=== PATIENT | female | born 2000 | race Caucasian/White ===

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

== ENCOUNTER → 2019-06-22 09:55 | Outpatient (CLI) | payer MEDICAID, SELFPAY ==
[2019-06-22 12:40] LABS: HCG,Quantitative 2847 mIU/mL
== END ==
PROVIDERS: Visit Provider Obstetrics & Gynecology
DX: Z32.00 Encounter for pregnancy test, result unknown (principal)
CPT/HCPCS: 36415; 84702

== ENCOUNTER → 2020-04-12 09:59 | Outpatient (CLI) | payer OTHER, SELFPAY ==
--- NOTE | 2020-04-12 10:04 | US_ITS ---
PROCEDURE: US ABDOMEN LIMITED CLINICAL INDICATION: RUQ PAIN COMPARISON: No exams were available for comparison FINDINGS: The liver, pancreas, and spleen are of normal echogenicity. These organs were not measured. Gallstones present. Gallbladder wall measures 2.6 millimeters. Common bile duct measures 2.5 millimeters. The right kidney is normal size and echogenicity and measures 92 millimeters x 43 millimeters x 69 millimeters. There is normal hepatic doppler venous flow. IMPRESSION: Gallstones Dictated by: Braden Craig 04/12/2020 11:50 Electronically signed by Braden Craig in [facility] 04/12/2020 11:50
== END ==
PROVIDERS: PCP Family Medicine; Visit Provider Nurse Practitioner Family
DX: R10.11 Right upper quadrant pain (principal); R11.0 Nausea; R19.7 Diarrhea, unspecified
CPT/HCPCS: 76705

== ENCOUNTER → 2020-05-09 12:04 | Outpatient (CLI) | payer OTHER, SELFPAY ==
[2020-05-09 12:22] LABS: Basophils # 0.1 K/mm3 (0-0.2); Basophils % 1.5 % (0.1-2.0); Eosinophils # 0.3 K/mm3 (0.0-0.4); Eosinophils % 5.2 % (0.1-12.0); Hematocrit 40.9 % (37.0-47.0); Hemoglobin 13.1 g/dL (12.2-16.2); Lymphocytes # 2.1 K/mm3 (0.7-4.5); Lymphocytes % 36.4 % (10-50); Mean Corpuscular HGB Conc 31.9 g/dL (31.8-35.4); Mean Corpuscular Hemoglobin 24.4 pg (27.0-31.2); Mean Corpuscular Volume 76.2 fl (81-99); Mean Platelet Volume 7.5 fl (7.4-10.4); Monocytes # 0.2 K/mm3 (0.1-1.0); Monocytes % 4.2 % (1.7-9.3); Neutrophils # 3.1 K/mm3 (1.8-7.8); Neutrophils % 52.7 % (37.0-80.0); Platelet Count 355 K/mm3 (142-424); Red Blood Count 5.36 M/mm3 (4.20-5.40); Red Cell Distribution Width 18.8 % (11.5-17.5); White Blood Count 5.8 K/mm3 (4.5-13.0)
[2020-05-09 12:55] LABS: Chloride 103 mmol/L (98-107); Potassium 4.3 mmoL/L (3.5-5.1); Sodium 140 mmol/L (136-145)
[2020-05-09 12:57] LABS: Blood Urea Nitrogen 14 mg/dl (7-17); Estimated Glomerular Filt Rate 127 ml/min (>60); GFR (African American) 154 ML/MIN (>60)
[2020-05-09 12:58] LABS: Alanine Aminotransferase 34 U/L (12-78); Albumin Level 4.4 g/dl (3.5-5.0); Albumin/Globulin Ratio 1.7 (1.1-1.8); Alkaline Phosphatase 89 U/L (38-126); Anion Gap 13.3 mEq/L (5-15); Aspartate Amino Transferase 28 U/L (14-36); Bilirubin,Total 0.5 mg/dl (0.2-1.3); Calcium 9.7 mg/dl (8.4-10.2); Carbon Dioxide 28 mmol/L (22.0-30.0); Globulin 2.6 g/dL (1.3-3.2); Glucose 81 mg/dl (74-100)
[2020-05-09 13:07] LABS: Urine Pregnancy, HCG Qual. Negative (Negative)
[2020-05-09 17:30] LABS: Coronavirus 19 IgG Antibody Negative (Negative); Coronavirus 19 IgM Antibody Negative (Negative)
== END ==
PROVIDERS: Visit Provider Surgery
DX: K80.20 Calculus of gallbladder without cholecystitis without obstruction (principal); Z01.818 Encounter for other preprocedural examination
CPT/HCPCS: 36415; 80053; 81025; 85025; 86328

== ENCOUNTER 2020-05-10 06:39 | Day surgery (SDC) | payer OTHER, SELFPAY ==
[2020-05-08 09:38] VITALS: BMI 24.7
[2020-05-10] VITALS (11 sets, daily range): BP systolic 123–141; BP diastolic 69–87; PULSE 60–95; RESP 16–18; TEMP 36.3–43; O2SAT 94–100
--- NOTE | 2020-05-10 07:58 | HMH.ANESCL ---
[facility] Anesthesia Checklist - Patient Identification Patient Identification: Arm Band - Structural Data Admitted From: Home Planned Operative Procedure/s: laparoscopic cholecystectomy Consent for Planned Operative Procedure(s) Verified: Yes Verified Documents: Surgical Consent, History and Physical - NPO Status Verified Time NPO: 00:00 - Additional verifications Anesthesia Reactions: No Hx Blood Transfusions: No Blood Transfusion Reaction: No - Airway Assessment C-Spine Mobility Assessed: Yes (mp2) TMJ Mobility Assessed: Yes Dentition: Good Dentition - Neurological Assessment Level of Consciousness: Awake, Alert - Anesthesia Plan Anesthesia Risk discussed: Yes Anesthesia Plan: Verified ASA Class: I Anesthesia Type: General [facility] History I have reviewed the patient's past medical history: Yes Medical History: Denies:: Cancer, Diabetes Mellitus Type 1, Diabetes Mellitus Type 2, Internal Pacemaker, MRSA, Seizures *Have you ever received a pneumonia vaccine?: No *Have you received a flu vaccine this season?: No Other Medical History: Denies: Blood Transfusion Reaction Anesthesia experience/problems:: nac Other Surgeries: Yes: Other (oral sx as child). No: Pacemaker Amputation: No Fractures: No - *Social History Last grade of school completed: High school graduate Smoking Status: Never smoker Alcohol Intake: never Substance Use Type: denies use *Occupational Status:: unemployed Housing: house Household Members: family *Travel in the last 8 weeks: None Family Hx:: Non-contributory
--- NOTE | 2020-05-10 10:31 | HMH.OPNOTE ---
Date of procedure: 05/10/20 Pre-op Diagnosis:: Symptomatic gallstones Post-op Diagnosis:: Same Procedure performed:: Laparoscopic cholecystectomy Surgeon:: Lance Kovacs MD FUNDRAISING OFFICER:: Calvin Harris Anesthesia: SHARON Estimated blood loss (mL): 20 Clinical Note:: Patient is a very pleasant 19-year-old female who is approximately 10 weeks from normal vaginal delivery. During her she had developed some symptoms possibly consistent with gallbladder disease and actually seen in the emergency department last September. She has continued to have symptoms described as severe pain in the right upper quadrant with associated vomiting. She does state that she has relatively constant right upper quadrant discomfort but has had at least 3 severe attacks since her delivery on February 15. She had undergone gallbladder ultrasound which reveals gallstones with normal common bile duct and no evidence of cholecystitis. Operative findings:: She had distended gallbladder with some omental adhesions. She had redundant infundibulum of the gallbladder secondary to distention. Cystic artery was displaced somewhat to the right lateral location due to the distention and redundancy of the infundibulum and neck of the gallbladder Operative note:: Patient was taken to the operating room. She was given preoperative intravenous antibiotics. In the operating room she was placed in a supine position. General anesthesia was induced via endotracheal tube. Abdomen was prepped and draped in the standard surgical fashion. Subumbilical skin incision was made and while performing abdominal wall lift Veress needle was inserted. There was not appropriate insufflation pressures and therefore dissection was carried down to the fascia and the Veress needle was reinserted. 10 mm optical trocar was inserted at the umbilicus. She was noted to have some gas dissected into the falciform ligament. She was positioned in reverse Trendelenburg left side down. A couple 5 mm trochars were inserted in the right upper abdomen. 10 mm trocar was inserted in the epigastrium. Liver was elevated. Gallbladder was identified and grasped retracted anteriorly and superiorly over the dome of the liver. There were some adhesions of omentum to the gallbladder and these were taken down using blunt dissection. Infundibulum of the gallbladder was retracted anterior laterally. Blunt dissection was carried out the neck of the gallbladder. Infundibulum the gallbladder was redundant due to distention. She did have a prominent lymph node present. Dissection was carried out ultimately identifying the cystic duct. It was isolated. Cystic artery actually traversed somewhat to the posterior and right lateral area of the cystic duct. Cystic duct was isolated multiply clipped and then divided. The cystic artery was carefully coagulated with BRITTANIE ultrasonic robotic haley and divided. Gallbladder was dissected free from the liver in a retrograde fashion using BRITTANIE ultrasonic robotic haley. Gallbladder was placed within an Endo Catch retrieval device and removed from the peritoneal cavity via the umbilical trocar site. Gallbladder fossa was inspected for hemostasis which was assured. Trochars were removed as CO2 pneumoperitoneum was evacuated. Fascia at the umbilicus was closed with 0 Vicryl suture. Local anesthetic was infiltrated. Skin incisions were closed with 4-0 Monocryl in a subcuticular fashion. Steri-Strips were applied. Condition: stable Disposition: PACU Specimens:: Gallbladder and contents Complications:: None immediately apparent
--- NOTE | 2020-05-10 10:35 | P.PN_ITS ---
[facility] Anesthesia Record Part I Intake, IV Amount: 1,100 Estimated blood loss (mL): 10 Urine output (mL): 0 Blood Pressure: 134/69 SaO2: 94 Pulse Rate: 88 Respiratory Rate: 16 Temperature: 98.2 F Patient is:: Drowsy, Stable Stable to PACU at:: 10:30
--- NOTE | 2020-05-10 13:24 | P.PN_ITS ---
[facility] Anesthesia Record Part II Discharge Time: 10:59 Destination: Surgical Day Care (OP Surgery) PACU nurse assessment reviewed?: Yes Patient Condition:: Good Anesthesia Complications:: None Swallowing reflex intact?: Yes Cyanosis?: No Blood Pressure: 131/75 Pulse Rate: 82 Temperature: 98.4 F Mental Status: Alert & Oriented Pain level:: 0 Nausea and/or vomitting:: None Intake, IV Amount: 0
== END 2020-05-10 11:30 | disposition home or self-care (01) ==
LOC: OR 06:40
PROVIDERS: PCP Family Medicine; Visit Provider Surgery
PROC: 0FT44ZZ Resection of Gallbladder, Percutaneous Endoscopic Approach (ICD-10-PCS; CPT 47562; principal; 2020-05-10 08:45)
DX: K80.80 Other cholelithiasis without obstruction (principal); K66.0 Peritoneal adhesions (postprocedural) (postinfection)
CPT/HCPCS: 47562; 96374; J2405; J2710

== ENCOUNTER 2020-11-21 21:38 | Emergency (ER) | payer OTHER, SELFPAY ==
[2020-11-21 22:14] VITALS: BP 142/84; PULSE 88; RESP 16; TEMP 36.8; O2SAT 98; BMI 27.3
--- NOTE | 2020-11-21 22:19 | HMH.EDEYEP ---
ED Disposition Clinical Impression: Corneal abrasion Qualifiers: Encounter type: initial encounter Laterality: left Qualified Code(s): S05.02XA - Injury of conjunctiva and corneal abrasion without foreign body, left eye, initial encounter Disposition: Home, Self-Care Condition on Discharge: Good Instructions: DI for Corneal Abrasion Additional Instructions: call dr liu in am Referrals: Andi Sutton MD [Primary Care Provider] - - Critical Care Critical Care Time: No Attestation: On 11/21/20, the high probability of a clinically significant, sudden or life threatening deterioration of the following system(s) required my full and direct attention, intervention and personal management. The time I documented below is in addition to time spent performing reported procedures but includes the following listed in this critical care notation. Medical Decision Making - Medical Records Medical records reviewed: Yes: I reviewed the patient's medical records. - [place] Inquiry Pt receiving controlled substance: No Vital Signs: 11/21/20 22:14 Temperature 98.2 F Temperature Source Oral Pulse Rate [Right Brachial] 88 Respiratory Rate 16 Blood Pressure [142/84] 142/84 H Blood Pressure Mean [142/84] 103 Blood Pressure Source [142/84] Automatic Cuff Blood Pressure Position [142/84] Sitting 02 Sat by Pulse Oximetry 98 Eye Problem HPI - General Chief complaint: Eye Problems Stated complaint: AO 2/2 LEFT EYE INJURY WITH PAPER Time Seen by Provider: 11/21/20 22:19 Mode of Arrival: Family Vehicle Source of Information: Patient, Significant Other, Medical Record Limitations: No Limitations Description of Symptoms (Recalled from ER Triage Doc. by RN): papercut to left eye - History of Present Illness HPI Narrative: pt with acute lt eye injury chief complaint: eye pain Onset (ago): hour(s) Location: left eye Eye Symptoms: pain Place: home Mechanism: direct trauma Severity: moderate Associated symptoms: none Treatments Prior to Arrival: none - Related Data Patient tetanus UTD: No (declined ) Home Medications Medication Instructions Recorded Confirmed No Known Home Medications 05/08/20 05/10/20 Allergies Allergy/AdvReac Type Severity Reaction Status Date / Time No Known Allergies Allergy Verified 05/10/20 07:08 [facility] History - Hepatitis A Screen Drug use history?: No High risk sexual behaviors?: No History of sexually transmitted infection?: No Currently employed?: No Childcare worker?: No Do you have indoor plumbing?: Yes Do you have electricity?: Yes Attestation statement:: This patient has been screened for Hepatitis A risk factors. I have reviewed the patient's past medical history: Yes Medical History: Denies:: Cancer, Diabetes Mellitus Type 1, Diabetes Mellitus Type 2, Internal Pacemaker, MRSA, Seizures Other Medical History: Denies: Blood Transfusion Reaction Other Surgeries: Yes: No Previous Surgery, Other (oral sx as child). No: Pacemaker Amputation: No Fractures: No - Social History Smoking Status: Never smoker Alcohol Intake: never Substance Use Type: denies use Occupational Status: unemployed Housing: house Household Members: family Family Hx:: Non-contributory ROS Obtained: Yes All systems reviewed & no additional complaints - Constitutional Constitutional: Denies fever(s) - Eyes Eyes: Reports as per HPI, Reports sensitivity to light, Reports eye pain - ENT Ears, Nose, Mouth, and Throat: Denies sore throat - Cardiovascular Cardiovascular: Denies chest pain - Respiratory Respiratory: Denies shortness of breath - Genitourinary Female Genitourinary: Denies hematuria - Musculoskeletal Musculoskeletal: Denies joint pain - Integumentary/Breasts Skin/Breast: Denies rash - Neurologic Neurologic: Denies loss of vision, Denies seizure-like activity Physical Exam - General General appearance: alert - Head Head exam: normocephalic -
[2020-11-21 22:48] VITALS: BP 142/78; PULSE 81; RESP 19; TEMP 37.6; O2SAT 98
== END 2020-11-21 22:51 | disposition home or self-care (01) ==
PROVIDERS: Emergency Provider Emergency Medicine; PCP Family Medicine
DX: S05.02XA Injury of conjunctiva and corneal abrasion without foreign body, left eye, initial encounter (principal)
CPT/HCPCS: 99281

== ENCOUNTER → 2021-08-08 11:19 | Outpatient (CLI) | payer OTHER, SELFPAY ==
[2021-08-08 13:06] LABS: HCG,Quantitative 992 mIU/ml (0-5.42)
== END ==
PROVIDERS: Visit Provider Obstetrics & Gynecology
DX: Z34.90 Encounter for supervision of normal pregnancy, unspecified, unspecified trimester (principal)
CPT/HCPCS: 36415; 84702

== ENCOUNTER → 2021-08-10 11:21 | Outpatient (CLI) | payer OTHER, SELFPAY ==
[2021-08-10 12:41] LABS: HCG,Quantitative 2529 mIU/ml (0-5.42)
== END ==
PROVIDERS: Visit Provider Obstetrics & Gynecology
DX: Z34.90 Encounter for supervision of normal pregnancy, unspecified, unspecified trimester (principal)
CPT/HCPCS: 36415; 84702

== ENCOUNTER → 2021-09-03 14:49 | Outpatient (CLI) | payer OTHER, SELFPAY ==
--- NOTE | 2021-09-03 14:49 | US_ITS ---
PROCEDURE: US OB <= 14 WEEKS FETUS CLINICAL INDICATION: dates COMPARISON: No exams were available for comparison FINDINGS: An intrauterine gestational sac is present with a pole with a crown-rump length of 1.68cm correlating to gestational age of 8weeks 1day. heart tones are present with an FHR of 161bpm. Yolk sac is noted. Unremarkable adnexa IMPRESSION: Live IUP at 8 weeks 1 day Estimated due date by Ultrasound is 04/14/2022 Dictated by: Bacilio Barrera MD 09/03/2021 16:28 Bacilio Barrera MD in [facility] 09/03/2021 16:28
== END ==
PROVIDERS: PCP Family Medicine; Visit Provider Obstetrics & Gynecology
DX: Z34.90 Encounter for supervision of normal pregnancy, unspecified, unspecified trimester (principal)
CPT/HCPCS: 76801

== ENCOUNTER → 2022-06-11 14:31 | Outpatient (CLI) | payer OTHER, SELFPAY | PROVIDERS: PCP Family Medicine; Visit Provider Family Medicine | DX: Z20.822 Contact with and (suspected) exposure to COVID-19 (principal); R19.7 Diarrhea, unspecified; R51.9 Headache, unspecified; R11.0 Nausea | CPT/HCPCS: 87177; C9803; U0003; U0005 ==

== ENCOUNTER 2022-11-16 13:21 | Emergency (ER) | payer OTHER, SELFPAY ==
--- NOTE | 2022-11-16 14:12 | EXP.UTC ---
Discharge Plan Disposition Patient Disposition: Home, Self-Care Condition: Good Prescriptions Prescriptions: New amoxicillin [amoxicillin] 500 mg tablet 500 mg PO TID 10 Days Qty: 30 0RF gumtiloducaippf-eiylddriy-IX [Bromfed DM] 2-30-10 mg/5 mL Syrup 5 ml PO Q6H PRN (Reason: Cough) Qty: 240 0RF Referrals Follow up/Referrals: Avis Flores PA [Primary Care Provider] - See instructions Activity Restrictions/Add. Instructions Additional Instructions/Restrictions: Drink plenty of fluids. Take tylenol or ibuprofen for pain or fever. Take the medications as directed. Follow up with your regular doctor. GO TO THE ER FOR ANY WORSENING SYMPTOMS Clinical Impressions Clinical Impression: Pharyngitis Instructions Patient Instructions: DI for Pharyngitis/Tonsillopharyngitis -- Adult Discharge ED Provider: Yaw Braxton [facility] [place] HPI General Stated complaint: sore throat,congested Time Seen by Provider: 11/16/22 14:11 History of Present Illness Provider Complaint: She c/o sore throat for the past 2 days. She has had chills, but no documented fever. He states that she feels like she has strep throat. Related Data Previous Rx's Medication Instructions Recorded amoxicillin 500 mg tablet 500 mg PO TID 10 days #30 tabs 11/16/22 uueygttfqbnbeut-mvnemeygtppgovx-AJ 5 ml PO Q6H PRN Cough #240 mL 11/16/22 2 mg-30 mg-10 mg/5 mL oral syrup (Bromfed DM) Allergies Allergy/AdvReac Type Severity Reaction Status Date / Time No Known Allergies Allergy Verified 11/16/22 14:38 [facility] Disclaimer: The information contained in this section may have been updated after the patient was seen, as this information can be updated by other users. Social History Smoking Status: Never smoker alcohol intake: never substance use type: denies use current occupational status: unemployed Travel in the last 8 weeks: None household members: family housing: house caffeine: Yes ROS Obtained: Yes All systems reviewed & no additional complaints except as documented Constitutional Constitutional: Reports chills and Reports fever(s) Eyes Eyes: Denies eye discharge ENT Ears, Nose, Mouth, and Throat: Reports as per HPI Cardiovascular Cardiovascular: Denies chest pain Respiratory Respiratory: Denies chest congestion and Reports cough Gastrointestinal Gastrointestingal: Reports nausea; Denies abdominal pain, constipation, cramping, diarrhea or vomiting Musculoskeletal Musculoskeletal: Denies arthralgias Integumentary/Breasts Skin/Breast: Denies rash Neurologic Neurologic: Denies paresthesias Physical Exam General General appearance: alert and in no apparent distress Head Head exam: atraumatic, normocephalic and normal inspection Eye Eye exam: Present normal appearance, PERRL and EOMI ENT ENT exam: Present mucous membranes moist and normal external ear exam Expanded ENT Exam TM/Canal exam: Bilateral TM: erythema and bulging Nose exam: Absent sinus tenderness Mouth exam: Present normal external inspection; Absent drooling Teeth exam: Present normal inspection Throat exam: Present tonsillar erythema, tonsillomegaly and tonsillar exudate Neck Neck exam: Present normal inspection, full ROM and trachea midline; Absent tenderness, meningismus or lymphadenopathy Chest Chest inspection: Present normal inspection and symmetric chest wall rise; Absent tenderness Respiratory Respiratory exam: Present normal lung sounds bilaterally; Absent respiratory distress, wheezes or stridor Cardiovascular Cardiovascular exam: Present regular rate and normal rhythm; Absent systolic murmur or diastolic murmur Abdominal Exam Abdominal exam: Present soft and normal bowel sounds; Absent distention, tenderness, guarding, rebound or rigidity Extremities Exam Extremities exam: Present normal inspection and normal capillary refill; Absent calf tenderness Back Exam Back e
[2022-11-16 14:30] VITALS: BP 122/86; PULSE 134; RESP 20; TEMP 36.9; O2SAT 96; BMI 25.8
[2022-11-16 14:36] LABS: UTC Strep Screen (Rapid) Negative (Negative)
[2022-11-16 15:01] VITALS: BP 122/86; PULSE 134; RESP 20; TEMP 36.9; O2SAT 96
== END 2022-11-16 15:00 | disposition home or self-care (01) ==
PROVIDERS: Emergency Provider Nurse Practitioner Family; PCP Physician Assistant
DX: J02.9 Acute pharyngitis, unspecified (principal)
CPT/HCPCS: 87880; 99212; G0463

== ENCOUNTER 2023-03-26 21:22 | Emergency (ER) | payer OTHER, SELFPAY ==
[2023-03-26 21:23] VITALS: BP 136/78; PULSE 112; RESP 20; TEMP 37.7; O2SAT 99; BMI 24.3
[2023-03-26 21:30] VITALS: BP 133/82; PULSE 122; O2SAT 99
[2023-03-26 21:39] LABS: Microscopic, Urine URINE MICROSCOPIC (MICROSCOPIC)
--- NOTE | 2023-03-26 21:46 | ECG_ITS ---
APPROVED REPORT Exam: Resting ECG HR:102 bpm ECG Measurements Heart Rate 102 AXES GA 126 P 55 QRSd 85 QRS 76 QT 308 T 42 QTc 367 Conclusion SINUS TACHYCARDIA NONSPECIFIC T-WAVE ABNORMALITY ABNORMAL RHYTHM ECG UNCONFIRMED REPORT Electronically signed by : Andi Castro MD 03/27/2023 09:26:12
[2023-03-26 21:47] LABS: Urine Pregnancy, HCG Qual. Negative (Negative)
[2023-03-26 21:48] LABS: Appearance,Urine SL CLOUDY (Clear); Bilirubin,Urine Negative (Negative); Blood, Urine Negative (Negative); Color,Urine YELLOW (Yellow); Glucose,Urine (UA) Negative (Negative); Ketones,Urine Negative (Negative); Leukocyte Esterase,Urine Negative (Negative); Nitrate,Urine Negative (Negative); Protein,Urine Negative (Negative)
[2023-03-26 21:53] LABS: Coronavirus 19, PCR Not Detected (NotDetected); Influenza A, PCR Not Detected (NotDetected); Influenza B, PCR Not Detected (NotDetected)
[2023-03-26 21:59] LABS: Amorphous Sediment,Urine 1+ /lpf; Bacteria,Urine 1+ /lpf; WBC,Urine Occasional #/hpf (0-3)
[2023-03-26 22:00] VITALS: BP 117/76; PULSE 103; O2SAT 97
[2023-03-26 22:02] LABS: Lactic Acid 1.2 mmol/L (0.7-2.1)
[2023-03-26 22:17] LABS: Basophils % 0.3 % (0.1-2.0); Eosinophils # 0.1 K/mm3 (0.0-0.4); Eosinophils % 1.6 % (0.1-12.0); Hematocrit 38.9 % (37.0-47.0); Hemoglobin 12.7 g/dL (12.2-16.2); Lymphocytes # 0.7 K/mm3 (0.7-4.5); Lymphocytes % 11.4 % (10-50); Mean Corpuscular HGB Conc 32.7 g/dL (31.8-35.4); Mean Corpuscular Hemoglobin 26.6 pg (27.0-31.2); Mean Corpuscular Volume 81.5 fl (81-99); Mean Platelet Volume 8.2 fl (7.4-10.4); Monocytes # 0.2 K/mm3 (0.1-1.0); Monocytes % 3.7 % (1.7-9.3); Neutrophils # 5.1 K/mm3 (1.8-7.8); Neutrophils % 82.9 % (37.0-80.0); Platelet Count 237 K/mm3 (142-424); Red Blood Count 4.78 M/mm3 (4.20-5.40); Red Cell Distribution Width 13.9 % (11.5-17.5); White Blood Count 6.2 K/mm3 (4.8-10.8)
[2023-03-26 22:22] LABS: Chloride 101 mmol/L (98-107); Sodium 136 mmol/L (136-145)
[2023-03-26 22:25] LABS: Alanine Aminotransferase 20 U/L (12-78); Albumin Level 3.9 g/dl (3.5-5.0); Albumin/Globulin Ratio 1.5 (1.1-1.8); Alkaline Phosphatase 77 U/L (38-126); Aspartate Amino Transferase 24 U/L (14-36); Bilirubin,Total 0.2 mg/dl (0.2-1.3); Blood Urea Nitrogen 13 mg/dl (7-17); Carbon Dioxide 27 mmol/L (22.0-30.0); Creatinine Clearance Estimated 172 mL/min (50-200); Estimated Glomerular Filt Rate 124 ml/min (>60); GFR (African American) 150 ML/MIN (>60); Globulin 2.6 g/dL (1.3-3.2); Total Protein,Serum 6.5 g/dl (6.3-8.2)
[2023-03-26 22:26] LABS: Calcium 8.6 mg/dl (8.4-10.2); Glucose 92 mg/dl (74-100)
--- NOTE | 2023-03-26 22:32 | HMH.EDGENADL ---
Discharge Plan Disposition Patient Disposition: Home, Self-Care Condition: Good Chief Complaint: Fever Prescriptions Prescriptions: No Action amoxicillin [amoxicillin] 500 mg tablet 500 mg PO TID 10 Days Qty: 30 0RF xsbywxaogwuveso-coptcazao-VE [Bromfed DM] 2-30-10 mg/5 mL Syrup 5 ml PO Q6H PRN (Reason: Cough) Qty: 240 0RF Referrals Follow up/Referrals: Avis Flores PA [Primary Care Provider] - See instructions Activity Restrictions/Add. Instructions Additional Instructions/Restrictions: Motrin/Tylenol for aches, pains, fever. Stay well-hydrated. Follow-up PCP in 1 to 2 days Clinical Impressions Clinical Impression: Acute viral syndrome Discharge ED Provider: Fox Hightower General Adult HPI General Chief complaint: Fever Stated complaint: weak, 102.6 fever,dizzy,headahce Time Seen by Provider: 03/26/23 21:28 Mode of Arrival: Ambulatory Source of Information: Patient Limitations: No Limitations Description of Symptoms (Recalled from ER Triage Doc. by RN): Pt states she has had increased weakness, headache, fever which started today. History of Present Illness HPI narrative: 22yo F presents to the ER secondary to fever, weakness, headache. Symptoms began today. Reports a temperature of 102.6 and took Tylenol prior to arrival. No known sick contact. Mild nausea without vomiting. Normal bowel habits. Related Data Previous Rx's Medication Instructions Recorded amoxicillin 500 mg tablet 500 mg PO TID 10 days #30 tabs 11/16/22 tbqsrggrlcqglsh-kyouhqelkjanbjm-RP 5 ml PO Q6H PRN Cough #240 mL 11/16/22 2 mg-30 mg-10 mg/5 mL oral syrup (Bromfed DM) Allergies Allergy/AdvReac Type Severity Reaction Status Date / Time No Known Allergies Allergy Verified 11/16/22 14:38 [facility] Disclaimer: The information contained in this section may have been updated after the patient was seen, as this information can be updated by other users. Social History Smoking Status: Never smoker alcohol intake: never substance use type: denies use current occupational status: unemployed Travel in the last 8 weeks: None household members: family housing: house caffeine: Yes ROS Obtained: Yes Systems reviewed as appropriate & no additional complaints except as documented Physical Exam General General appearance: alert and in no apparent distress Head Head exam: atraumatic Eye Eye exam: Present PERRL ENT ENT exam: Present mucous membranes moist Neck Neck exam: Present trachea midline Respiratory Respiratory exam: Present normal lung sounds bilaterally; Absent respiratory distress Cardiovascular Cardiovascular exam: Present regular rate, normal rhythm and normal heart sounds Abdominal Exam Abdominal exam: Present soft and normal bowel sounds; Absent distention or tenderness Extremities Exam Extremities exam: Present normal inspection and normal capillary refill; Absent tenderness or edema Neurological Exam Neurological exam: Present alert, oriented X3 and CN II-XII intact Psychiatric Psychiatric exam: Present normal affect Skin Skin exam: Present warm and dry Medical Decision Making Medical Records Medical records reviewed: Yes I reviewed the patient's medical records. [place] Inquiry Pt receiving controlled substance: No Vital Signs: 03/26/23 21:23 03/26/23 21:30 03/26/23 21:50 Temperature 100 F H Temperature Source Oral Oral Pulse Rate 122 H Pulse Rate [Right] 112 H Respiratory Rate 20 Blood Pressure 133/82 Blood Pressure [Right Arm] 136/78 Blood Pressure Mean [Right Arm] 97 Blood Pressure Source [Right Arm] Automatic Cuff Blood Pressure Position [Right Arm] Sitting 02 Sat by Pulse Oximetry 99 99 Oxygen Delivery Method Room Air Room Air Lab Data Lab results reviewed: Yes I reviewed the patient's lab results. Lab Results 03/26/23 21:30: Urine Color Yellow, Urine Appearance Sl cloud
[2023-03-26 22:35] VITALS: BP 118/76; PULSE 112; O2SAT 97
[2023-03-26 23:13] LABS: Strep Scrn Group A (Rapid) Negative (Negative)
--- NOTE | 2023-03-26 23:23 | PC.NURSE ---
rounded on pt and updating she would be discharged once IV fluids are done infusing
[2023-03-27 00:16] VITALS: BP 116/87; PULSE 91; RESP 16; TEMP 37.1; O2SAT 97
== END 2023-03-27 00:21 | disposition home or self-care (01) ==
PROVIDERS: Emergency Provider Family Medicine; PCP Physician Assistant
DX: R51.9 Headache, unspecified (principal); R53.1 Weakness; R50.9 Fever, unspecified; R00.0 Tachycardia, unspecified; B34.9 Viral infection, unspecified
CPT/HCPCS: 80053; 81001; 81025; 83605; 85025; 87040; 87430; 87635; 87636; 93005; 96361; 96365; 99285; C9803; J0696; U0003; U0005

== ENCOUNTER 2023-06-16 09:13 | Emergency (ER) | payer OTHER, SELFPAY ==
[2023-06-16 09:50] VITALS: BP 140/92; PULSE 91; RESP 18; TEMP 37; O2SAT 100; BMI 28.0
--- NOTE | 2023-06-16 10:03 | EXP.UTC ---
Discharge Plan Disposition Patient Disposition: Home, Self-Care Condition: Good Prescriptions Prescriptions: New triamcinolone acetonide 0.1 % cream 1 applic topical BID PRN (Reason: itching) Qty: 30 0RF diphenhydramine HCl [Diphenhydramine HCl] 25 mg capsule 25 mg PO Q6HP PRN (Reason: Itching) Qty: 30 0RF methylprednisolone 4 mg Tablets,Dose Pack 4 mg PO DIRECTED Qty: 21 0RF No Action zptyzihzszijxkg-sjirxycov-WJ [Bromfed DM] 2-30-10 mg/5 mL Syrup 5 ml PO Q6H PRN (Reason: Cough) Qty: 240 0RF Referrals Follow up/Referrals: Avis Flores PA [Primary Care Provider] - See instructions Activity Restrictions/Add. Instructions Additional Instructions/Restrictions: Try to identify and avoid contact with the offending substance. Don't start the oral steroids until tomorrow. The diphenhydramine (benedryl) will make you drowsy, so don't drive or operate heavy machinery after taking it. Don't put the topical steroids (triamcinolone) on your face or your groin. Follow up with your regular doctor. GO TO THE ER FOR ANY WORSENING SYMPTOMS OR CONCERNS Clinical Impressions Clinical Impression: Contact dermatitis Instructions Patient Instructions: Contact Dermatitis, DI for Contact Dermatitis Discharge ED Provider: Yaw Braxton [facility] [place] General Stated complaint: rash Mode of Arrival: Ambulatory Source of Information: Patient Limitations: No Limitations Time Seen by Provider: 06/16/23 10:03 Description of Symptoms (Recalled from Triage Doc. by RN): PATIENT C/O POISON CARLOS RASH ALL OVER BODY SINCE LAST NIGHT HEENT Symptoms (Recalled from RN notes): No Resp Symptoms (Recalled from RN notes): No Skin Symptoms (Recalled from RN notes): Yes MS Symptoms (Recalled from RN notes): No Functional Status (Recalled from RN notes): WNL History of Present Illness Provider Complaint: She states that she has had an itchy rash on her face, arms, chest and legs since yesterday. She has been exposed to poison carlos. She has a history of being very sensitive to poison carlos. Related Data Previous Rx's Medication Instructions Recorded lxixmflzwkmajxv-seoiekezudfwtgx-BJ 5 ml PO Q6H PRN Cough #240 mL 11/16/22 2 mg-30 mg-10 mg/5 mL oral syrup (Bromfed DM) diphenhydramine HCl 25 mg capsule 25 mg PO Q6HP PRN Itching #30 caps 06/16/23 methylprednisolone 4 mg tablets in 4 mg PO DIRECTED #21 tabs 06/16/23 a dose pack triamcinolone acetonide 0.1 % 1 applic topical BID PRN itching 06/16/23 topical cream #30 grams Allergies Allergy/AdvReac Type Severity Reaction Status Date / Time No Known Allergies Allergy Verified 11/16/22 14:38 Worker's Comp Is this a Worker's Comp case?: No PFSH PFS Disclaimer: The information contained in this section may have been updated after the patient was seen, as this information can be updated by other users. Surgical History (Updated 06/16/23 @ 09:58 by Shu Rosenthal RN) History of cholecystectomy Social History Smoking Status: Never smoker alcohol intake: never substance use type: denies use current occupational status: unemployed Travel in the last 8 weeks: None household members: family housing: house caffeine: Yes ROS Obtained: Yes All systems reviewed & no additional complaints except as documented Constitutional Constitutional: Denies chills and Denies fever(s) Eyes Eyes: Denies eye discharge ENT Ears, Nose, Mouth, and Throat: Denies dizziness, Denies otalgia and Denies sore throat Cardiovascular Cardiovascular: Denies chest pain Respiratory Respiratory: Denies shortness of breath, Denies chest congestion, Denies cough, Denies stridor and Denies wheezing Gastrointestinal Gastrointestingal: Denies nausea or vomiting Musculoskeletal Musculoskeletal: Reports system reviewed and no additional complaints, except as documented and Denies arthralgias Integumentary/Breasts
[2023-06-16 10:08] VITALS: BP 140/92; PULSE 91; RESP 18; TEMP 37; O2SAT 100
== END 2023-06-16 11:03 | disposition home or self-care (01) ==
PROVIDERS: Emergency Provider Nurse Practitioner Family; PCP Physician Assistant
DX: L23.7 Allergic contact dermatitis due to plants, except food (principal); W60.XXXA Contact with nonvenomous plant thorns and spines and sharp leaves, initial encounter
CPT/HCPCS: 96372; 99212; 99214; G0463

== ENCOUNTER 2023-06-20 09:35 | Emergency (ER) | payer OTHER, SELFPAY ==
[2023-06-20 09:35] VITALS: BP 136/78; PULSE 71; RESP 18; TEMP 36.7; O2SAT 99; BMI 24.3
--- NOTE | 2023-06-20 10:14 | EXP.UTC ---
Discharge Plan Disposition Patient Disposition: Home, Self-Care Condition: Good Prescriptions Prescriptions: New hydroxyzine pamoate 25 mg capsule 25 mg PO TID PRN (Reason: itching) Qty: 20 0RF prednisone 10 mg tablet 10 mg PO BID 5 Days Qty: 10 0RF No Action [id number] [Bromfed DM] 2-30-10 mg/5 mL Syrup 5 ml PO Q6H PRN (Reason: Cough) Qty: 240 0RF triamcinolone acetonide 0.1 % cream 1 applic topical BID PRN (Reason: itching) Qty: 30 0RF diphenhydramine HCl [Diphenhydramine HCl] 25 mg capsule 25 mg PO Q6HP PRN (Reason: Itching) Qty: 30 0RF methylprednisolone 4 mg Tablets,Dose Pack 4 mg PO DIRECTED Qty: 21 0RF Referrals Follow up/Referrals: Nelida Machado MD [Referring] - See instructions (Call for appointment) Avis Flores PA [Primary Care Provider] - See instructions Edison Ahuja MD [Referring] - See instructions Kaiden Almaguer [Referring] - See instructions Fox Sanchez MD [Referring] - See instructions Activity Restrictions/Add. Instructions Additional Instructions/Restrictions: Stop the Benadryl and the Medrol Dose pack and start the Oral Prednisone tomorrow and hydroxyzine Follow up with Asthma and Allergy and dermatology you will need to call for appointments Return if needed Look around and see what you may be having a reaction to make sure to wash your sheets Straight to ER if any life threatening symptoms Clinical Impressions Clinical Impression: Contact dermatitis Qualifiers: Contact dermatitis type: unspecified Contact dermatitis trigger: unspecified trigger Qualified Code(s): L25.9 - Unspecified contact dermatitis, unspecified cause Instructions Patient Instructions: DI for Contact Dermatitis Discharge ED Provider: Jayashree Spencer [facility] [place] HPI General Stated complaint: rash allover body Mode of Arrival: Ambulatory Source of Information: Patient Limitations: No Limitations Time Seen by Provider: 06/20/23 10:15 Description of Symptoms (Recalled from Triage Doc. by RN): Patient reports a poison shelly rash to face and ears. States she was here on Friday and rec'd a steroid shot and oral steroids but it hasn't gotten any better. HEENT Symptoms (Recalled from RN notes): No Resp Symptoms (Recalled from RN notes): No Skin Symptoms (Recalled from RN notes): Yes MS Symptoms (Recalled from RN notes): No Functional Status (Recalled from RN notes): wnl History of Present Illness Provider Complaint: Patient states that she was here on Friday and got a steriod shot and oral Medrol pack but it hasnt helped much States that she thinks she may have poison shelly but it has continued to get worse States that it is very itchy and has since continued to spread States that today she was still itching so she came back to see if there was anything else she can do to help Related Data Previous Rx's Medication Instructions Recorded koyvuauzvnoaqbw-[id number]-TX 5 ml PO Q6H PRN Cough #240 mL 11/16/22 2 mg-30 mg-10 mg/5 mL oral syrup (Bromfed DM) diphenhydramine HCl 25 mg capsule 25 mg PO Q6HP PRN Itching #30 caps 06/16/23 methylprednisolone 4 mg tablets in 4 mg PO DIRECTED #21 tabs 06/16/23 a dose pack triamcinolone acetonide 0.1 % 1 applic topical BID PRN itching 06/16/23 topical cream #30 grams hydroxyzine pamoate 25 mg capsule 25 mg PO TID PRN itching #20 caps 06/20/23 prednisone 10 mg tablet 10 mg PO BID 5 days #10 tabs 06/20/23 Allergies Allergy/AdvReac Type Severity Reaction Status Date / Time No Known Allergies Allergy Verified 11/16/22 14:38 Worker's Comp Is this a Worker's Comp case?: No [facility] Disclaimer: The information contained in this section may have been updated after the patient was seen, as this information can be updated by other users. Surgical History (Updated 06/16/23 @ 09:58 by Shu Rosenthal RN) History of cholecystectomy Social History Smoking Statu
[2023-06-20 11:03] VITALS: BP 136/78; PULSE 71; RESP 18; TEMP 36.7; O2SAT 99
== END 2023-06-20 11:14 | disposition home or self-care (01) ==
PROVIDERS: Emergency Provider Nurse Practitioner; PCP Physician Assistant
DX: L25.9 Unspecified contact dermatitis, unspecified cause (principal)
CPT/HCPCS: 96372; 99212; 99214; G0463

== ENCOUNTER 2023-07-25 12:50 | Emergency (ER) | payer OTHER, SELFPAY ==
--- NOTE | 2023-07-25 13:24 | EXP.UTC ---
Discharge Plan Disposition Patient Disposition: Home, Self-Care Condition: Good Prescriptions Prescriptions: New [id number]-[id number] [Bromfed DM] 2-30-10 mg/5 mL Syrup 5 ml PO Q6H PRN (Reason: Cough) Qty: 240 0RF prednisone 10 mg tablet 10 mg PO BID 4 Days Qty: 8 0RF No Action triamcinolone acetonide 0.1 % cream 1 applic topical BID PRN (Reason: itching) Qty: 30 0RF diphenhydramine HCl [Diphenhydramine HCl] 25 mg capsule 25 mg PO Q6HP PRN (Reason: Itching) Qty: 30 0RF hydroxyzine pamoate 25 mg capsule 25 mg PO TID PRN (Reason: itching) Qty: 20 0RF Referrals Follow up/Referrals: Avis Flores PA [Primary Care Provider] - See instructions Activity Restrictions/Add. Instructions Additional Instructions/Restrictions: Drink plenty of fluids. Take tylenol or ibuprofen for pain or fever. Take the medications as directed. Follow up with your regular doctor. GO TO THE ER FOR ANY WORSENING SYMPTOMS Clinical Impressions Clinical Impression: Acute viral syndrome Instructions Patient Instructions: DI for Viral Syndrome Discharge ED Provider: Yaw Braxton [facility] General Stated complaint: MILES, congestion Time Seen by Provider: 07/25/23 13:24 History of Present Illness Provider Complaint: She states that for the past 2 days she has had fever/chills/body aches. Related Data Previous Rx's Medication Instructions Recorded diphenhydramine HCl 25 mg capsule 25 mg PO Q6HP PRN Itching #30 caps 06/16/23 triamcinolone acetonide 0.1 % 1 applic topical BID PRN itching 06/16/23 topical cream #30 grams hydroxyzine pamoate 25 mg capsule 25 mg PO TID PRN itching #20 caps 06/20/23 jjowjqjelurdsku-pcsscfzlbyvzwyp-ZP 5 ml PO Q6H PRN Cough #240 mL 07/25/23 2 mg-30 mg-10 mg/5 mL oral syrup (Bromfed DM) prednisone 10 mg tablet 10 mg PO BID 4 days #8 tabs 07/25/23 Allergies Allergy/AdvReac Type Severity Reaction Status Date / Time No Known Allergies Allergy Verified 07/25/23 13:48 [facility] Disclaimer: The information contained in this section may have been updated after the patient was seen, as this information can be updated by other users. Surgical History History of cholecystectomy Social History Smoking Status: Never smoker alcohol intake: never substance use type: denies use current occupational status: unemployed Travel in the last 8 weeks: None household members: family housing: house caffeine: Yes ROS Obtained: Yes All systems reviewed & no additional complaints except as documented Constitutional Constitutional: Reports chills and Reports fever(s) Eyes Eyes: Denies eye discharge ENT Ears, Nose, Mouth, and Throat: Reports as per HPI Cardiovascular Cardiovascular: Denies chest pain Respiratory Respiratory: Denies chest congestion and Reports cough Gastrointestinal Gastrointestingal: Reports nausea; Denies abdominal pain, constipation, cramping, diarrhea or vomiting Musculoskeletal Musculoskeletal: Denies arthralgias Integumentary/Breasts Skin/Breast: Denies rash Neurologic Neurologic: Denies paresthesias Physical Exam General General appearance: alert and in no apparent distress Head Head exam: atraumatic, normocephalic and normal inspection Eye Eye exam: Present normal appearance, PERRL and EOMI ENT ENT exam: Present normal exam, normal oropharynx, mucous membranes moist, TM's normal bilaterally and normal external ear exam Neck Neck exam: Present normal inspection, full ROM and trachea midline; Absent meningismus or lymphadenopathy Chest Chest inspection: Present normal inspection and symmetric chest wall rise; Absent tenderness Respiratory Respiratory exam: Present normal lung sounds bilaterally; Absent respiratory distress Cardiovascular Cardiovascular exam: Present regular rate and normal rhythm; Absent JVD Abdomina
[2023-07-25 13:35] VITALS: BP 121/87; PULSE 98; RESP 18; TEMP 36.8; O2SAT 98; BMI 30.9
[2023-07-25 14:29] VITALS: BP 121/87; PULSE 98; RESP 18; TEMP 36.8; O2SAT 98
== END 2023-07-25 14:29 | disposition home or self-care (01) ==
PROVIDERS: Emergency Provider Nurse Practitioner Family; PCP Physician Assistant
DX: R50.9 Fever, unspecified (principal); R51.9 Headache, unspecified; B34.9 Viral infection, unspecified; R05.9 Cough, unspecified
CPT/HCPCS: 87635; 99212; 99214; G0463

== ENCOUNTER 2023-10-21 12:52 | Emergency (ER) | payer OTHER, SELFPAY ==
[2023-10-21 13:20] VITALS: BP 131/88; PULSE 91; RESP 19; TEMP 37.1; O2SAT 100; BMI 23.1
--- NOTE | 2023-10-21 13:39 | ED_ITS ---
Discharge Plan Disposition Patient Disposition: Home, Self-Care Condition: Good Referrals Follow up/Referrals: Provider,Referral, MD [Primary Care Provider] - See instructions Activity Restrictions/Add. Instructions Additional Instructions/Restrictions: *Monitor Temp, Over the counter Motrin or Tylenol as directed/as needed Tylenol every 4 hours and Motrin every 6 hours (as long as your family doctor has told you that you can take it) for fever or pain. and straight to ER if unable to lower temp less than 101.0 after medication given *Warm salt water gargles may help to soothe the throat *Throat Lozenges? *Warm fluids like tea with honey may help to soothe the throat? *Sleep elevated *Humidifier/Vaporizer Your throat swab was sent for culture. Those results are typically sent to your primary care. Be sure to follow up in 2-3 days with your family doctor/primary care physician if no improvement so they can review those result and treat if necessary. If you don?t have a primary care doctor, I recommend you get one but in the mean time, you will have to return to a walk in clinic Follow up IMMEDIATELY for new or worsening symptoms or no Noticeable improvement over the next 48-72 hours. 911 for difficulty breathing or s wallowing Clinical Impressions Clinical Impression: Viral upper respiratory infection Instructions Patient Instructions: Sore Throat Discharge ED Provider: Jayashree Spencer [facility] [place] General Stated complaint: cough, congestion Mode of Arrival: Ambulatory Source of Information: Patient Limitations: No Limitations Time Seen by Provider: 10/21/23 13:39 Description of Symptoms (Recalled from Triage Doc. by RN): PATIENT C/O COUGH AND CONGESTION X 4 DAYS HEENT Symptoms (Recalled from RN notes): Yes Resp Symptoms (Recalled from RN notes): Yes Skin Symptoms (Recalled from RN notes): No MS Symptoms (Recalled from RN notes): No Functional Status (Recalled from RN notes): WNL History of Present Illness Provider Complaint: Patient states that for the last 4-5 days she has been having nasal congestion, cough, sore scratchy throat and over all not feeling well States that today she wasnt feeling any better so she came in Related Data Allergies Allergy/AdvReac Type Severity Reaction Status Date / Time No Known Allergies Allergy Verified 07/25/23 13:48 Worker's Comp Is this a Worker's Comp case?: No [facility] Disclaimer: The information contained in this section may have been updated after the patient was seen, as this information can be updated by other users. Surgical History History of cholecystectomy Social History Smoking Status: Never smoker alcohol intake: never substance use type: denies use current occupational status: unemployed Travel in the last 8 weeks: None household members: family housing: house caffeine: Yes ROS Obtained: Yes All systems reviewed & no additional complaints except as documented and Yes Systems reviewed as appropriate & no additional complaints except as documented Constitutional Constitutional: Reports system reviewed and no additional complaints, except as documented, Reports as per HPI and Reports headache(s) ENT Ears, Nose, Mouth, and Throat: Reports system reviewed and no additional complaints, except as documented, Reports as per HPI, Reports headache(s), Reports nasal congestion and Reports sore throat Cardiovascular Cardiovascular: Reports system reviewed and no additional complaints, except as documented and Reports as per HPI Respiratory Respiratory: Reports system reviewed and no additional complaints, except as documented, Reports as per HPI and Reports cough Gastrointestinal Gastrointestingal: Reports system reviewed and no additional complaints, except as documented and as per HPI Neurologic Neurologic: Reports headache(s) Physical Exam General General appearance: alert and in no apparent distress ENT ENT exam: Present mucous membranes moist Respiratory Respiratory exam: Present normal lung sounds bilaterally; Absent respiratory distress or wheezes Cardiovascular Cardiovascular exam: Present regular rate, normal rhythm and normal heart sounds Abdominal Exam Abdominal exam: Present soft and normal bowel sounds; Absent distention or tenderness Neurological Exam Neurological exam: Present alert, oriented X3 and normal gait Medical Decision Making [place] Inquiry Pt receiving controlled substance: No [place] was queried for this patient: No Vital Signs: 10/21/23 13:20 Temperature 98.8 F Temperature Source Oral Pulse Rate [Right Brachial] 91 H Respiratory Rate 19 Blood Pressure [Right Arm] 131/88 Blood Pressure Mean [Right Arm] 102 Blood Pressure Source [Right Arm] Automatic Cuff Blood Pressure Position [Right Arm] Sitting 02 Sat by Pulse Oximetry 100 Oxygen Delivery Method Room Air Lab Data Lab results reviewed: Yes I reviewed the patient's lab results.
[2023-10-21 13:57] VITALS: BP 131/88; PULSE 91; RESP 19; TEMP 37.1; O2SAT 100
[2023-10-21 13:59] LABS: UTC Strep Screen (Rapid) Negative (Negative)
== END 2023-10-21 14:11 | disposition home or self-care (01) ==
PROVIDERS: Emergency Provider Nurse Practitioner
DX: R05.9 Cough, unspecified (principal); R51.9 Headache, unspecified; J06.9 Acute upper respiratory infection, unspecified; R09.81 Nasal congestion; R07.0 Pain in throat; B34.9 Viral infection, unspecified
CPT/HCPCS: 87880; 99212; 99213; 99214; G0463

== ENCOUNTER 2024-03-30 12:00 | Emergency (ER) | payer OTHER, SELFPAY ==
[2024-03-30 12:04] VITALS: BP 150/77; PULSE 94; RESP 16; TEMP 36.7; O2SAT 99; BMI 27.3
[2024-03-30 12:15] VITALS: BP 135/88; PULSE 78; O2SAT 99
[2024-03-30 12:26] LABS: Urine Pregnancy, HCG Qual. Negative (Negative)
[2024-03-30 12:30] VITALS: BP 132/87; PULSE 79; O2SAT 99
[2024-03-30 12:45] VITALS: BP 132/82; PULSE 79; O2SAT 100
--- NOTE | 2024-03-30 13:00 | ED_ITS ---
Discharge Plan Disposition Patient Disposition: Home, Self-Care Referrals Follow up/Referrals: Avis Flores PA [Primary Care Provider] - See instructions Activity Restrictions/Add. Instructions Additional Instructions/Restrictions: Please follow-up with your [employer] doctor if you continue to have issues with abnormal uterine bleeding. No evidence of emergent medical condition today. Clinical Impressions Clinical Impression: Abnormal uterine bleeding Stand Alone Forms Stand Alone Forms: Work/School Release Discharge ED Provider: Prabhakar Toney General Adult HPI General Chief complaint: Vaginal Bleeding Stated complaint: bleeding, clots of blood Time Seen by Provider: 03/30/24 12:47 Mode of Arrival: Ambulatory Source of Information: Patient Limitations: No Limitations Description of Symptoms (Recalled from ER Triage Doc. by RN): Patient reports bleeding with clots. States that she started lightly bleeding yesterday and it became heavy with clots this morning. Does report cramping. States that she doesn't know if she is or not. Patient has not missed her period yet but that her and her are currently trying to get . History of Present Illness HPI narrative: Patient is a 23-year-old female presents today with vaginal bleeding. States she has had 2 pregnancies in the past she is actively trying to have another and states that she has been very regular with her periods has not had any significant dysfunctional uterine bleeding in the past. She began bleeding yesterday which is about 5 days early from when she was expected to and she states that she had some abdominal cramping and was passing what she stated appeared to be clots. No severe pain at the moment. She is not on any blood thinners or anticoagulants no bleeding or bruising elsewhere no other past medical history. She has not yet had a test. Related Data Allergies Allergy/AdvReac Type Severity Reaction Status Date / Time No Known Allergies Allergy Verified 07/25/23 13:48 [facility] Disclaimer: The information contained in this section may have been updated after the patient was seen, as this information can be updated by other users. Surgical History History of cholecystectomy Social History Smoking Status: Current every day smoker alcohol intake: never substance use type: denies use current occupational status: unemployed Travel in the last 8 weeks: None household members: family housing: house caffeine: Yes ROS Obtained: Yes All systems reviewed & no additional complaints except as documented Physical Exam General General appearance: alert Respiratory Respiratory exam: Present normal lung sounds bilaterally; Absent respiratory distress Cardiovascular Cardiovascular exam: Present regular rate Abdominal Exam Abdominal exam: Present soft; Absent distention or tenderness Neurological Exam Neurological exam: Present alert and oriented X3 Medical Decision Making [place] Inquiry Pt receiving controlled substance: No Vital Signs: 03/30/24 12:04 03/30/24 12:15 03/30/24 12:30 Temperature 98.1 F Temperature Source Oral Pulse Rate 78 79 Pulse Rate [Radial] 94 H Respiratory Rate 16 Blood Pressure 135/88 132/87 Blood Pressure [Right Arm] 150/77 H Blood Pressure Mean 94 96 Blood Pressure Mean [Right Arm] 101 Blood Pressure Source [Right Arm] Automatic Cuff Blood Pressure Position [Right Arm] Sitting 02 Sat by Pulse Oximetry 99 99 99 Oxygen Delivery Method Room Air 03/30/24 12:45 Temperature Temperature Source Pulse Rate 79 Pulse Rate [Radial] Respiratory Rate Blood Pressure 132/82 Blood Pressure [Right Arm] Blood Pressure Mean 88 Blood Pressure Mean [Right Arm] Blood Pressure Source [Right Arm] Blood Pressure Position [Right Arm] 02 Sat by Pulse Oximetry 100 Oxygen Delivery Method Lab Data Lab results reviewed: Yes I reviewed the patient's lab results. Lab Results 03/30/24 12:10: Urine HCG, Qual Negative 03/30/24 13:07: WBC 6.5, RBC 5.09, Hgb 14.4, Hct 43.6, MCV 85.6, MCH 28.3, MCHC 33.0, RDW 14.0, Plt Count 284, MPV 7.9, Neut % (Auto) 71.5, Lymph % (Auto) 18.2, [place] % (Auto) 3.1, Eos % (Auto) 6.2, Baso % (Auto) 1.1, Neut # (Auto) 4.6, Lymph # (Auto) 1.2, [place] # (Auto) 0.2, Eos # (Auto) 0.4, Baso # (Auto) 0.1, PT 10.3, INR 0.95, APTT 24.5, Sodium 139, Potassium 4.1, Chloride 106, Carbon Dioxide 25, Anion Gap 12.1, BUN 9, Creatinine 0.60, Estimated Creat Clear 186, Estimated GFR 123, Est GFR ( Amer) 149, Glucose 91, Calcium 9.1, Total Bilirubin 0.6, AST 35, ALT 27, Alkaline Phosphatase 56, Total Protein 7.3, Albumin 4.5, Globulin 2.8, Albumin/Globulin Ratio 1.6, Serum HCG, Qual Negative 03/30/24 13:07 03/30/24 13:07 Orders (Tests/Meds): ORDERS Category Date Time Status CBC w/Auto Diff [Complete Blood Count Auto Diff] Stat Lab 03/30/24 13:07 Completed CMP [Comprehensive Metabolic Panel] Stat Lab 03/30/24 13:07 Results HCG Qualitative, Serum Stat Lab 03/30/24 13:07 Completed PT/PTT Stat Lab 03/30/24 13:07 Completed TSH [Thyroid Stimulating Hormone] Stat Lab 03/30/24 13:07 Results Urine , HCG Qual. Stat Lab 03/30/24 12:10 Completed Medical Decision Narrative: 23-year-old hemodynamically stable patient presents today with abnormal uterine bleeding. Urine test was already resulted prior to my evaluation which was negative. This is poorly sensitive with a low beta-hCG we will get a qualitative test. Differential includes which could be ectopic or intrauterine threatened complete abnormal uterine bleeding etc. I favor abnormal uterine bleeding at the moment. Given the fact that she is trying to get will not initiate hormone therapy or NSAIDs. I suspect that she will have normal H&H given her hemodynamic stability but given her fact that she is symptomatic we will check basic blood work. Reassessment 206 labs unremarkable including qualitative negative beta-hCG from the serum. 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 Critical Care Critical Care Time Critical Care Time: No
--- NOTE | 2024-03-30 13:19 | PC.NURSE ---
Pt resting. No needs voiced. Call light within reach.
[2024-03-30 13:24] LABS: Basophils # 0.1 K/mm3 (0-0.2); Basophils % 1.1 % (0.1-2.0); Eosinophils # 0.4 K/mm3 (0.0-0.4); Eosinophils % 6.2 % (0.1-12.0); Hematocrit 43.6 % (37.0-47.0); Hemoglobin 14.4 g/dL (12.2-16.2); Lymphocytes # 1.2 K/mm3 (0.7-4.5); Lymphocytes % 18.2 % (10-50); Mean Corpuscular Hemoglobin 28.3 pg (27.0-31.2); Mean Corpuscular Volume 85.6 fl (81-99); Mean Platelet Volume 7.9 fl (7.4-10.4); Monocytes # 0.2 K/mm3 (0.1-1.0); Monocytes % 3.1 % (1.7-9.3); Neutrophils # 4.6 K/mm3 (1.8-7.8); Neutrophils % 71.5 % (37.0-80.0); Platelet Count 284 K/mm3 (142-424); Red Blood Count 5.09 M/mm3 (4.20-5.40); White Blood Count 6.5 K/mm3 (4.8-10.8)
[2024-03-30 13:30] LABS: Chloride 106 mmol/L (98-107); Sodium 139 mmol/L (136-145)
[2024-03-30 13:31] LABS: Potassium 4.1 mmoL/L (3.5-5.1)
[2024-03-30 13:33] LABS: Alanine Aminotransferase 27 U/L (12-78); Albumin Level 4.5 g/dl (3.5-5.0); Alkaline Phosphatase 56 U/L (38-126); Anion Gap 12.1 mEq/L (5-15); Aspartate Amino Transferase 35 U/L (14-36); Bilirubin,Total 0.6 mg/dl (0.2-1.3); Blood Urea Nitrogen 9 mg/dl (7-17); Carbon Dioxide 25 mmol/L (22.0-30.0); Creatinine Clearance Estimated 186 mL/min (50-200); Estimated Glomerular Filt Rate 123 ml/min (>60); GFR (African American) 149 ML/MIN (>60)
[2024-03-30 13:34] LABS: Albumin/Globulin Ratio 1.6 (1.1-1.8); Calcium 9.1 mg/dl (8.4-10.2); Globulin 2.8 g/dL (1.3-3.2); Glucose 91 mg/dl (74-100); HCG Qualitative, Serum Negative (Negative); Total Protein,Serum 7.3 g/dl (6.3-8.2)
[2024-03-30 13:41] LABS: Activated Partial Thrombo Time 24.5 seconds (22.8-30.6); INR 0.95 (0.9-1.1); Prothrombin Time 10.3 seconds (10.1-12.5)
--- NOTE | 2024-03-30 13:57 | PC.NURSE ---
DR ROMEO AT BEDSIDE
[2024-03-30 14:05] LABS: Thyroid Stimulating Hormone 1.51 uIU/mL (0.465-4.68)
[2024-03-30 14:09] VITALS: BP 132/82; PULSE 79; RESP 16; TEMP 36.7; O2SAT 100
== END 2024-03-30 14:10 | disposition home or self-care (01) ==
PROVIDERS: Emergency Provider Student in an Organized Health Care Education/Training Program; PCP Physician Assistant
DX: N93.9 Abnormal uterine and vaginal bleeding, unspecified (principal)
CPT/HCPCS: 80053; 81025; 84443; 84703; 85025; 85610; 85730; 99283

== ENCOUNTER 2024-05-27 11:15 | Emergency (ER) | payer OTHER, SELFPAY ==
[2024-05-27 11:17] VITALS: BP 123/79; PULSE 82; RESP 16; TEMP 37; O2SAT 99; BMI 25.8
--- NOTE | 2024-05-27 11:53 | US_ITS ---
PROCEDURE INFORMATION: Exam: US , Transvaginal Exam date and time: 05/27/2024 12:04 PM Age: 23 years old Clinical indication: Lmp or gestational age (in weeks): 4 weeks 2 days; Other: Bleeding early preg; ; Additional info: 4 weeks lmp, bleeding LABS AND CLINICAL REPORTS: Last menstrual period start date: 04/27/2024 Gestational age (Established): 4 w 2 d Estimated due date (Established): 02/01/2025 TECHNIQUE: Imaging protocol: Real-time transvaginal obstetrical ultrasound of the maternal pelvis with image documentation. Transvaginal imaging was used for better evaluation of the fetus, adnexa, and/or cervix. COMPARISON: US OB <= 14 WEEKS FETUS 09/03/2021 3:13 PM FINDINGS: MATERNAL: Uterus: Uterus is unremarkable in size and contour measuring 8.14 cm x 4.9 cm x 3.87 cm. There are no uterine masses or textural changes in the myometrium. Endometrial lining is homogeneous and not thickened measuring 6 mm. There was no intrauterine gestational sac visualized. Cervix is unremarkable. Right ovary/adnexa: Right ovary measures 2.37 cm x 1.8 cm x 1.57 cm. Right ovarian volume is 3.51 mL. Left ovary/adnexa: Left ovary measures 2.16 cm x 1.42 cm x 3.04 cm. Left ovarian volume is 4.88 mL. Intraperitoneal space: No significant free fluid seen. IMPRESSION: Unremarkable pelvic ultrasound exam. No intrauterine detected. In view of patient's history consider early IUP (less than 5 weeks), completed miscarriage or occult ectopic . Continued follow-up and correlation with serial HCG is recommended.
[2024-05-27 12:00] VITALS: BP 124/86; PULSE 79; O2SAT 99
[2024-05-27 12:00] LABS: Basophils # 0.1 K/mm3 (0-0.2); Basophils % 0.7 % (0.1-2.0); Eosinophils # 0.4 K/mm3 (0.0-0.4); Eosinophils % 4.1 % (0.1-12.0); Hematocrit 42.8 % (37.0-47.0); Hemoglobin 14.1 g/dL (12.2-16.2); Lymphocytes # 1.6 K/mm3 (0.7-4.5); Lymphocytes % 18.5 % (10-50); Mean Corpuscular HGB Conc 32.9 g/dL (31.8-35.4); Mean Corpuscular Hemoglobin 28.6 pg (27.0-31.2); Monocytes # 0.3 K/mm3 (0.1-1.0); Monocytes % 3.4 % (1.7-9.3); Neutrophils # 6.5 K/mm3 (1.8-7.8); Neutrophils % 73.4 % (37.0-80.0); Platelet Count 312 K/mm3 (142-424); Red Blood Count 4.92 M/mm3 (4.20-5.40); Red Cell Distribution Width 13.7 % (11.5-17.5); White Blood Count 8.8 K/mm3 (4.8-10.8)
[2024-05-27 12:05] LABS: Albumin Level 4.2 g/dl (3.5-5.0); Chloride 109 mmol/L (98-107); Sodium 138 mmol/L (136-145)
[2024-05-27 12:06] LABS: Potassium 4.2 mmoL/L (3.5-5.1)
[2024-05-27 12:07] LABS: Activated Partial Thrombo Time 28.3 seconds (22.8-30.6); INR 0.89 (0.9-1.1); Prothrombin Time 10.1 seconds (10.1-12.5)
[2024-05-27 12:08] LABS: Alanine Aminotransferase 28 U/L (12-78); Albumin/Globulin Ratio 1.5 (1.1-1.8); Alkaline Phosphatase 66 U/L (38-126); Anion Gap 8.2 mEq/L (5-15); Aspartate Amino Transferase 29 U/L (14-36); Bilirubin,Total 0.6 mg/dl (0.2-1.3); Blood Urea Nitrogen 12 mg/dl (7-17); Carbon Dioxide 25 mmol/L (22.0-30.0); Creatinine Clearance Estimated 176 mL/min (50-200); Estimated Glomerular Filt Rate 123 ml/min (>60); GFR (African American) 149 ML/MIN (>60); Globulin 2.8 g/dL (1.3-3.2)
[2024-05-27 12:09] LABS: Calcium 8.4 mg/dl (8.4-10.2); Glucose 91 mg/dl (74-100)
--- NOTE | 2024-05-27 12:10 | ED_ITS ---
Discharge Plan Disposition Patient Disposition: Home, Self-Care Chief Complaint: Vaginal Bleeding Referrals Follow up/Referrals: Avis Flores PA [Primary Care Provider] - See instructions Activity Restrictions/Add. Instructions Additional Instructions/Restrictions: Follow-up with your family doctor and [facility] for this visit to the emergency department. See your family doctor or [facility] on Friday to have repeat labs drawn to test hCG levels. Clinical Impressions Clinical Impression: Vaginal bleeding Print Language Print Language: [place] Discharge ED Provider: Thiago Beltran General Adult HPI General Chief complaint: Vaginal Bleeding Stated complaint: 4 wks antepartum, bleeding Time Seen by Provider: 05/27/24 11:18 Mode of Arrival: Family Vehicle Source of Information: Patient Limitations: No Limitations Description of Symptoms (Recalled from ER Triage Doc. by RN): Pt reports to be 4 wk and reports to have light vaginal bleeding since 10 am. States her LMP was 04/27/24. She is with full tern vaginal deliveries of her previous 2 children and she denies any vaginal bleeding with her previous pregnancies. She also reports sinus congestion, headache, and non-productive cough. Denies any any significant PMH and is taking vitamins. History of Present Illness HPI narrative: Please note that above description of symptoms, in this electronic medical record under categorization of recalled from ER triage doctor by RN are reflective of an initial nursing assessment, however, is not reflective of my full history and physical exam that was personally taken and clarified. Consequentially, this preceding description of symptoms, which may include the patient's categorized chief complaint in the EMR, do not reflect my personal clinical impression, and the ultimate description of history of present illness and patient stated complaints should be deferred to this section of the note. Unless stated otherwise or congruent with this section of the note, additional signs, symptoms, or incongruence should be interpreted as inaccurate with my clinical impression. Related Data Allergies Allergy/AdvReac Type Severity Reaction Status Date / Time No Known Allergies Allergy Verified 07/25/23 13:48 [facility] Disclaimer: The information contained in this section may have been updated after the patient was seen, as this information can be updated by other users. Surgical History History of cholecystectomy Social History Smoking Status: Former smoker alcohol intake: never substance use type: denies use current occupational status: unemployed Travel in the last 8 weeks: None household members: family housing: house caffeine: Yes ROS Obtained: Yes All systems reviewed & no additional complaints except as documented Physical Exam General General appearance: alert Head Head exam: atraumatic and normocephalic Eye Eye exam: Present normal appearance, PERRL and EOMI Neck Neck exam: Present normal inspection, full ROM and trachea midline Respiratory Respiratory exam: Absent respiratory distress, wheezes, stridor, accessory muscle use or prolonged expiratory phase Cardiovascular Cardiovascular exam: Present other (Pulses equal symmetric in upper and lower extremities) Abdominal Exam Abdominal exam: Present soft; Absent distention, tenderness, guarding or pulsatile mass Extremities Exam Extremities exam: Absent edema Neurological Exam Neurological exam: Present alert, oriented X3 and CN II-XII intact; Absent motor sensory deficit Skin Skin exam: Present warm and dry; Absent diaphoresis or erythema Medical Decision Making Medical Records Medical records reviewed: Yes I reviewed the patient's medical records. [place] Inquiry Pt receiving controlled substance: No [place] was queried for this patient: No Vital Signs: 05/27/24 11:17 05/27/24 12:00 Temperature 98.6 F Temperature Source Oral Pulse Rate 79 Pulse Rate [Right] 82 Respiratory Rate 16 Blood Pressure 124/86 Blood Pressure [Right Arm] 123/79 Blood Pressure Mean [Right Arm] 93 Blood Pressure Source [Right Arm] Automatic Cuff 02 Sat by Pulse Oximetry 99 99 Oxygen Delivery Method Room Air Lab Data Lab Results 05/27/24 11:25: WBC 8.8, RBC 4.92, Hgb 14.1, Hct 42.8, MCV 87.0, MCH 28.6, MCHC 32.9, RDW 13.7, Plt Count 312, MPV 8.0, Neut % (Auto) 73.4, Lymph % (Auto) 18.5, [place] % (Auto) 3.4, Eos % (Auto) 4.1, Baso % (Auto) 0.7, Neut # (Auto) 6.5, Lymph # (Auto) 1.6, [place] # (Auto) 0.3, Eos # (Auto) 0.4, Baso # (Auto) 0.1, PT 10.1, I NR 0.89 L, APTT 28.3, Sodium 138, Potassium 4.2, Chloride 109 H, Carbon Dioxide 25, Anion Gap 8.2, BUN 12, Creatinine 0.60, Estimated Creat Clear 176, Estimated GFR 123, Est GFR ( Amer) 149, Glucose 91, Calcium 8.4, Total Bilirubin 0.6, AST 29, ALT 28, Alkaline Phosphatase 66, Total Protein 7.0, Albumin 4.2, Globulin 2.8, Albumin/Globulin Ratio 1.5, HCG, Quant 5 05/27/24 12:35: Urine Color Yellow, Urine Appearance Clear, Urine pH 6.0, Ur Specific [place] 1.015, Urine Protein Negative, Urine Glucose (UA) Negative, Urine Ketones Negative, Urine Blood 3+, Urine Nitrate Negative, Urine Bilirubin Negative, Urine Urobilinogen 0.2, Ur Leukocyte Esterase Negative, Urine RBC 5- 10, Urine WBC Occasional, Ur Squamous Epith Cells Occasional, Urine Bacteria Trace 05/27/24 11:25 05/27/24 11:25 Orders (Tests/Meds): ED MEDICATIONS Discontinued Medications Generic Name Dose Route Start Last Admin Trade Name Ivelisse PRN Reason Stop Dose Admin Acetaminophen 1,000 mg 05/27/24 12:13 05/27/24 12:21 Acetaminophen 500mg Tab PO 05/27/24 12:14 1,000 mg ONCE ONE Administration ORDERS Category Date Time Status Type and Screen Stat BBK 05/27/24 12:39 Received CBC w/Auto Diff [Complete Blood Count Auto Diff] Stat Lab 05/27/24 11:25 Completed CMP [Comprehensive Metabolic Panel] Stat Lab 05/27/24 11:25 Completed HCG,Quantitative Stat Lab 05/27/24 11:25 Completed PT INR [Prothrombin Time INR] Stat Lab 05/27/24 11:25 Completed PTT [Activated Partial Thrombo Time] Stat Lab 05/27/24 11:25 Completed UA [Urinalysis and Microscopic] Stat Lab 05/27/24 12:35 Completed US OB transvaginal Stat Ultrasound 05/27/24 11:53 Completed Medical Decision Narrative: 23-year-old female about 4 weeks by last menstrual period presenting with vaginal spotting. Started today, dark brown blood when she wipes. No gushes of fluid, cramping, pain, urinary symptoms, or any other concerns. States she also has a mild headache, has not taken anything for it. Taking a daily. History was obtained via conversation with patient and mother. On arrival, patient hemodynamically stable, alert, oriented x4, appropriate, GCS 15, moving all extremities spontaneously, pupils equal and reactive to light. Full physical exam performed and significant for very well- appearing female in no acute distress. Abdomen soft, nontender, nondistended. Vital signs stable. Differential includes routine spotting in , cervical change, spontaneous , ectopic , among others. Patient placed on continuous cardiac monitoring and continuous pulse ox with initial blood pressure 124/86, heart rate 79, saturation 99% on room air. Given 1 g Tylenol for headache. Workup independently interpreted and significant for nonactionable CBC or chemistry, hCG negative, 5. Urinalysis without concern for UTI.. hematologic testing shows patient is Rh+. On independent interpretation of imaging, no acute intraabdominal abnormality or obvious intrauterine on vaginal ultrasound. See radiology read for full review of final results. Because patient at baseline without signs or symptoms of clinical decompensation, deemed appropriate for discharge. Results were relayed to patient who voiced understanding and were agreeable to outpatient management and follow up. I discussed my clinical impression with patient and answered all questions. At this time, the evidence for any other entities in the differential is insufficient to warrant any further testing or ED observation. This was explained as well. Advisory was given that persistent or worsening symptoms require further evaluation. I confirmed the understanding of this discussion. Geriatric Nurse disclaimer Much of this encounter note is an electronic expeditionary fighting vehicle crewman spoken language to printed text. Electronic expeditionary fighting vehicle crewman of the spoken language may permit errors. Although I have reviewed the note, some errors may still exist. Critical Care Critical Care Time Critical Care Time: No
[2024-05-27] MEDS: ACETAMINOPHEN 500MG TAB 1000 MG PO (12:21)
[2024-05-27 12:27] LABS: HCG,Quantitative 5 mIU/ml (0-5.42)
--- NOTE | 2024-05-27 12:32 | PC.NURSE ---
pt returned from us
--- NOTE | 2024-05-27 12:33 | PC.NURSE ---
pt back in room from [employer]/s. Tech reports It's too early to see much but the ovaries look good and no evidence of ectopic . Dr. Beltran aware of this.
[2024-05-27 12:37] LABS: Microscopic, Urine URINE MICROSCOPIC (MICROSCOPIC)
[2024-05-27 12:41] LABS: Appearance,Urine CLEAR (Clear); Bilirubin,Urine Negative (Negative); Blood, Urine 3+ (Negative); Color,Urine YELLOW (Yellow); Glucose,Urine (UA) Negative (Negative); Ketones,Urine Negative (Negative); Leukocyte Esterase,Urine Negative (Negative); Nitrate,Urine Negative (Negative); Protein,Urine Negative (Negative); Specific Gravity, Urine 1.015 (1.005-1.030); Urobilinogen,Urine 0.2 EU/dl (0.2)
[2024-05-27 12:53] LABS: Bacteria,Urine Trace /lpf; Squamous Epithelial Cell,Urine Occasional #/hpf (0-5); WBC,Urine Occasional #/hpf (0-3)
[2024-05-27 14:24] VITALS: BP 125/72; PULSE 78; RESP 17; TEMP 37; O2SAT 99
== END 2024-05-27 14:25 | disposition home or self-care (01) ==
PROVIDERS: Emergency Provider Emergency Medicine; PCP Physician Assistant
DX: O20.9 Hemorrhage in early pregnancy, unspecified; R51.9 Headache, unspecified; R05.9 Cough, unspecified; R09.81 Nasal congestion; Z3A.01 Less than 8 weeks gestation of pregnancy
CPT/HCPCS: 76817; 80053; 81001; 84702; 85025; 85610; 85730; 86850; 99284

== ENCOUNTER 2024-11-23 15:26 | Outpatient (CLI) | payer OTHER, SELFPAY ==
[2024-11-23 17:20] LABS: Ferritin 7.05 ng/ml (6.24-137)
== END 2024-11-23 23:59 | disposition home or self-care (01) ==
PROVIDERS: PCP Physician Assistant; Visit Provider Obstetrics & Gynecology
DX: O99.019 Anemia complicating pregnancy, unspecified trimester (principal)
CPT/HCPCS: 36415; 82728; 87086

== ENCOUNTER 2024-12-21 12:43 | Outpatient (CLI) | payer OTHER, SELFPAY ==
--- NOTE | 2024-12-21 13:13 | US_ITS ---
PROCEDURE: US OB /MATERNAL DETAIL CLINICAL INDICATION: screening for abnormality COMPARISON: No exams were available for comparison FINDINGS: Transabdominal sonographic images of the pelvis were obtained. From her established due date she is 25 weeks and 6 days. Single viable intrauterine gestation. Cephalic position. Placenta: Posteriorplacenta grade 1. There is an average amount of fluid. The cervix appears satisfactory. Closed and measuring 4.23 cm in length. Complete survey performed and was unremarkable on the submitted images as in PACS. No discrete anomalies identified on survey imaging by technologist. Active fetus. Three-vessel cord with satisfactory umbilical cord insertion. 4- chamber heart noted. Situs, aortic arch, LVOT, RVOT, three-vessel view appear normal. Survey of brain & ventricles Unremarkable. Cerebellum, thalamus, choroid plexus, cisterna magna appear normal. Face and neck survey unremarkable. Profile, nasion, lips and nose appeared normal. Diaphragm and chest views unremarkable. Abdomen: Both kidneys noted and unremarkable. Stomach and bladder noted and satisfactory. Spine: Survey of the spine satisfactory with no anomalies identified nor imaged. Cervical, thoracic, lower spine appear normal. Both arms and legs noted. Amniotic Fluid: Adequate. Measurements: Average ultrasound age 28weeks 3days. Estimated due date by ultrasound age 0503/12/2025. Estimated weight 1,189g BPD = 28weeks 3days HC = 28weeks 3days AC = 28weeks 3days FL = 28weeks 0 days Growth Percentile= Heart Rate = 138bpm Cerebellum = Humerus = 28weeks 1day HC/AC is 1.08 FL/BPD is 0.74 FL/AC is 0.22 IMPRESSION: Dictated by: Brendan Allen MD 12/21/2024 14:19 Brendan Allen MD in [facility] 12/21/2024 14:19
== END 2024-12-21 23:59 | disposition home or self-care (01) ==
LOC: RAD 12:44
PROVIDERS: PCP Physician Assistant; Visit Provider Obstetrics & Gynecology
DX: Z36.3 Encounter for antenatal screening for malformations (principal); O99.012 Anemia complicating pregnancy, second trimester; N93.9 Abnormal uterine and vaginal bleeding, unspecified; Z3A.25 25 weeks gestation of pregnancy
CPT/HCPCS: 76811

== ENCOUNTER 2024-12-27 10:25 | Outpatient (CLI) | payer OTHER, SELFPAY ==
[2024-12-27 11:57] LABS: Basophils % 0.5 % (0.1-2.0); Eosinophils # 0.2 K/mm3 (0.0-0.4); Hematocrit 32.1 % (37.0-47.0); Hemoglobin 10.2 g/dL (12.2-16.2); Lymphocytes % 11.7 % (10-50); Mean Corpuscular HGB Conc 31.8 g/dL (31.8-35.4); Mean Corpuscular Hemoglobin 25.8 pg (27.0-31.2); Mean Corpuscular Volume 81.1 fl (81-99); Monocytes # 0.4 K/mm3 (0.1-1.0); Monocytes % 5.3 % (1.7-9.3); Neutrophils # 6.5 K/mm3 (1.8-7.8); Neutrophils % 79.8 % (37.0-80.0); Platelet Count 268 K/mm3 (142-424); Red Blood Count 3.96 M/mm3 (4.20-5.40); Red Cell Distribution Width 13.7 % (11.5-17.5); White Blood Count 8.2 K/mm3 (4.8-10.8)
[2024-12-27 12:08] LABS: Glucose 1 Hour 140 mg/dL (74-100)
== END 2024-12-27 23:59 | disposition home or self-care (01) ==
PROVIDERS: PCP Family Medicine; Visit Provider Obstetrics & Gynecology
DX: O99.012 Anemia complicating pregnancy, second trimester (principal); Z3A.26 26 weeks gestation of pregnancy
CPT/HCPCS: 36415; 82947; 85025

== ENCOUNTER 2025-01-04 07:50 | Outpatient (CLI) | payer OTHER, SELFPAY ==
[2025-01-04 08:25] LABS: Glucose,Fasting 71 mg/dl (74-100)
[2025-01-04 11:42] LABS: Glucose 1 Hour 142 mg/dL (74-100); Glucose 2 Hour 125 mg/dL (74-100)
[2025-01-04 12:31] LABS: Glucose 3 Hour 97 mg/dL (74-100)
== END 2025-01-04 23:59 | disposition home or self-care (01) ==
LOC: LAB 07:51
PROVIDERS: PCP Family Medicine; Visit Provider Obstetrics & Gynecology
DX: Z34.02 Encounter for supervision of normal first pregnancy, second trimester (principal)
CPT/HCPCS: 36415; 82951

== ENCOUNTER 2025-02-02 14:49 | Outpatient (CLI) | payer OTHER, SELFPAY ==
--- NOTE | 2025-02-02 15:00 | US_ITS ---
PROCEDURE: US OB FOLLOW UP CLINICAL INDICATION: f/u growth @32 weeks for LGA COMPARISON: US US OB TRANSVAGINAL from 05/27/2024 US US OB /MATERNAL DETAIL from 12/21/2024 FINDINGS: Transabdominal sonographic images of the pelvis were obtained. The following parameters are obtained: From her established due date she is 32weeks 0 days Viable fetus in the cephalic presentation with a posterior placenta grade 2. The cervix measures 3.32 cm Estimated weight 2519 grams, 5 lb 9 oz heart rate: 139bpm bpm. BPD: 36weeks 0 days, >98 percentile HC: 36weeks 3days, >98 percentile AC: 35weeks 2days, >98 percentile FL: 32weeks 6days, 61 percentile HC/AC: 1.03 FL/BPD: 0.71 FL/AC: 0.2 Growth percentile: >98 Amniotic fluid index: 15.9cm, MVP 6.02 cm No obvious anomalies evident. profile seen, stomach, bladder, kidneys, three-vessel cord, four chamber heart appear normal. brain: Cerebellum, thalamus, cisterna magna, appear normal. IMPRESSION: 1. Viable fetus in the cephalic presentation with a posterior placenta grade 2. 2. The fluid is within normal limits with an amniotic fluid index 15.9 cm, MVP 6.02 cm. 3. There has been good interval growth with the fetus is currently 5 lb 9 oz. The fetus is globally large and greater than 98 percentile. 4. brain anatomy appears normal today. 5. The rest of the limited anatomical scan appears normal. Dictated by: Brendan Allen MD 02/02/2025 16:34 Brendan Allen MD in [facility] 02/02/2025 16:34
== END 2025-02-02 23:59 | disposition home or self-care (01) ==
LOC: RAD 14:50
PROVIDERS: PCP Family Medicine; Visit Provider Obstetrics & Gynecology
DX: O36.63X0 Maternal care for excessive fetal growth, third trimester, not applicable or unspecified (principal); O99.013 Anemia complicating pregnancy, third trimester; Z3A.32 32 weeks gestation of pregnancy
CPT/HCPCS: 76816

== ENCOUNTER 2025-02-07 14:53 | Outpatient (CLI) | payer OTHER, SELFPAY ==
[2025-02-07 15:26] LABS: Basophils % 0.2 % (0.1-2.0); Eosinophils # 0.2 Kmm3 (0.0-0.4); Eosinophils % 1.8 % (0.1-12.0); Hematocrit 34.1 % (37.0-47.0); Hemoglobin 10.9 g/dL (12.2-16.2); Lymphocytes # 1.3 K/mm3 (0.7-4.5); Lymphocytes % 16.5 % (10-50); Mean Corpuscular Hemoglobin 24.9 pg (27.0-31.2); Mean Corpuscular Volume 77.9 fl (81-99); Mean Platelet Volume 10.3 fl (7.4-10.4); Monocytes # 0.6 K/mm3 (0.1-1.0); Monocytes % 7.5 % (1.7-9.3); Neutrophils # 5.9 K/mm3 (1.8-7.8); Nucleated Red Blood Cells # 0 10^3/uL; Nucleated Red Blood Cells % 0 %; Platelet Count 279 K/mm3 (142-424); Red Blood Count 4.38 M/mm3 (4.20-5.40); Red Cell Distribution Width 15.1 % (11.5-17.5); White Blood Count 8.1 K/mm3 (4.8-10.8)
[2025-02-07 17:33] LABS: Ferritin 5.14 ng/ml (6.24-137)
== END 2025-02-07 23:59 | disposition home or self-care (01) ==
PROVIDERS: Obstetrics & Gynecology; PCP Family Medicine; Visit Provider Obstetrics & Gynecology
DX: O99.013 Anemia complicating pregnancy, third trimester (principal); Z3A.32 32 weeks gestation of pregnancy
CPT/HCPCS: 36415; 82728; 85025

== ENCOUNTER 2025-02-18 13:21 | Outpatient (CLI) | payer OTHER, SELFPAY ==
[2025-02-18] MEDS: SODIUM CHLORIDE 0.9% 50ML BAG 50 ML IV (13:36)
[2025-02-18] MEDS: SODIUM CHLORIDE 0.9% 10ML FLUSH SYRINGE 10 ML IV (13:36)
[2025-02-18 13:38] VITALS: BP 136/79; PULSE 98; RESP 20; TEMP 36.8; O2SAT 100
[2025-02-18] MEDS: IRON SUCROSE COMPLEX 200 MG in 0.9 % SODIUM CHLORIDE 100 ML 220 MG IV (13:38)
[2025-02-18 14:18] VITALS: BP 123/74; PULSE 97; RESP 20; O2SAT 99
== END 2025-02-18 14:20 | disposition home or self-care (01) ==
LOC: INF 13:23
PROVIDERS: PCP Family Medicine; Visit Provider Obstetrics & Gynecology
DX: D50.9 Iron deficiency anemia, unspecified (principal)
CPT/HCPCS: 96365; J1756

== ENCOUNTER 2025-03-03 12:56 | Outpatient (CLI) | payer OTHER, SELFPAY ==
--- NOTE | 2025-03-03 13:00 | US_ITS ---
PROCEDURE: US OB BIOPHYSICAL PROFILE CLINICAL INDICATION: Needs 03/03/25 for LGA COMPARISON: US US OB TRANSVAGINAL from 05/27/2024 US US OB /MATERNAL DETAIL from 12/21/2024 US US OB FOLLOW UP from 02/02/2025 FINDINGS: Transabdominal sonographic images of the uterus were obtained. From her established due date she is 36weeks 1day. The following parameters are obtained: Viable Fetus in the cephalic presentation with a posterolateral placenta grade 2. Average ultrasound age is 38weeks 1day Estimated weight 3,277g, 7 lb 4 oz The cervix measures 4.33 cm in length Measurements: heart Rate = documented but not measured BPD = 39weeks 3days, >98 percentile HC = 38weeks 4days, 78 percentile AC = 37weeks 6days, 94 percentile FL = 36weeks 2days, 47 percentile HC/AC is 0.99 FL/BPD is 0.73 FL/AC is 0.21 88 percentile Amniotic fluid index: 14.56cm, MVP 3.97 cm Qualitative AFV:2 Breathing movements: 2 Gross Body Movements: 2 Tone: 2 Biophysical profile score: 8 Doppler evaluation of the umbilical artery: SD ratio: 1.88-2.32 Resistive index: 0.57 No obvious anomalies evident.Kidneys, bladder, stomach, four-chamber heart, three-vessel cord appear normal. IMPRESSION: 1. Viable fetus in the cephalic presentation with a posterolateral placenta grade 2. 2. The fluid is within normal limits with an amniotic fluid index 14.56 cm, MVP 3.97 cm. 3. Biophysical profile is 8/8 with good breathing movement and movement seen. 4. SD ratio is normal 1.88-2.32. 5. There has been good interval growth with the fetus currently 88th percentile. The fetus is 2 weeks ahead on its growth. 6. Limited anatomical scan appears normal. Dictated by: Brendan Allen MD 03/04/2025 06:24 Brendan Allen MD in [facility] 03/04/2025 06:24
== END 2025-03-03 23:59 | disposition home or self-care (01) ==
LOC: RAD 12:57
PROVIDERS: PCP Family Medicine; Visit Provider Obstetrics & Gynecology
DX: O36.60X3 Maternal care for excessive fetal growth, unspecified trimester, fetus 3 (principal); Z3A.36 36 weeks gestation of pregnancy
CPT/HCPCS: 76816; 76819; 76820

== ENCOUNTER 2025-03-04 08:57 | Outpatient (CLI) | payer OTHER, SELFPAY ==
[2025-03-04] MEDS: SODIUM CHLORIDE 0.9% 50ML BAG 50 ML IV (09:21)
[2025-03-04] MEDS: IRON SUCROSE COMPLEX 200 MG in 0.9 % SODIUM CHLORIDE 100 ML 220 MG IV (09:21)
[2025-03-04 09:25] VITALS: BP 121/75; PULSE 98; RESP 17; O2SAT 98
[2025-03-04 10:15] VITALS: BP 131/79; PULSE 90; RESP 16
== END 2025-03-04 10:15 | disposition home or self-care (01) ==
LOC: INF 08:57
PROVIDERS: PCP Family Medicine; Visit Provider Obstetrics & Gynecology
DX: D50.9 Iron deficiency anemia, unspecified (principal)
CPT/HCPCS: 96365; J1756

== ENCOUNTER 2025-03-08 16:29 | Outpatient (CLI) | payer OTHER, SELFPAY | END 2025-03-08 23:59 | disposition home or self-care (01) | LOC: LAB.DROPOF 16:29 | PROVIDERS: PCP Obstetrics & Gynecology; Visit Provider Obstetrics & Gynecology | DX: O99.013 Anemia complicating pregnancy, third trimester (principal); Z3A.36 36 weeks gestation of pregnancy | CPT/HCPCS: 86403 ==

== ENCOUNTER 2025-03-20 19:43 | Outpatient (CLI) | payer OTHER, SELFPAY ==
[2025-03-20 19:49] VITALS: BMI 33.5
[2025-03-20 20:00] VITALS: BP 144/92; PULSE 110; RESP 18; TEMP 36.6; O2SAT 96; BMI 34.5
[2025-03-20] MEDS: ONDANSETRON 4MG/2ML VIAL 4 MG IV (20:34)
[2025-03-20] MEDS: LACTATED RINGERS 1000ML 1,000 ML 999 ML IV (20:34)
== END 2025-03-20 22:00 | disposition home or self-care (01) ==
LOC: OBOUT 19:45 → OB 19:45
PROVIDERS: PCP Family Medicine; Visit Provider Obstetrics & Gynecology
DX: O26.893 Other specified pregnancy related conditions, third trimester (principal); R11.2 Nausea with vomiting, unspecified; Z3A.38 38 weeks gestation of pregnancy
CPT/HCPCS: 59025; 96360; 99212; G0463; J2405; J7120

== ENCOUNTER 2025-03-22 14:09 | Outpatient (CLI) | payer OTHER, SELFPAY | END 2025-03-22 23:59 | disposition home or self-care (01) | LOC: LAB.DROPOF 03-23 12:44 | PROVIDERS: PCP Obstetrics & Gynecology; Visit Provider Obstetrics & Gynecology | DX: B34.9 Viral infection, unspecified (principal) | CPT/HCPCS: 87086 ==

== ENCOUNTER 2025-03-23 04:49 | Inpatient (IN) | payer OTHER, SELFPAY ==
[2025-03-23 04:54] VITALS: BMI 33.1
[2025-03-23 05:16] VITALS: BP 133/78; PULSE 120; RESP 18; TEMP 36.8; O2SAT 96; BMI 33.1
[2025-03-23] MEDS: DEXTROSE 5%-LACTATED RINGERS 1,000 ML 125 ML IV (05:52)
[2025-03-23 06:08] LABS: Albumin Level 3.4 g/dl (3.5-5.0); Chloride 109 mmol/L (98-107); Potassium 3.6 mmoL/L (3.5-5.1); Sodium 137 mmol/L (136-145)
[2025-03-23 06:11] LABS: Alanine Aminotransferase 18 U/L (12-78); Albumin/Globulin Ratio 1.2 (1.1-1.8); Alkaline Phosphatase 170 U/L (38-126); Anion Gap 10.6 mEq/L (5-15); Aspartate Amino Transferase 24 U/L (14-36); Bilirubin,Total 0.4 mg/dl (0.2-1.3); Blood Urea Nitrogen 9 mg/dl (7-17); Calcium 8.7 mg/dl (8.4-10.2); Carbon Dioxide 21 mmol/L (22.0-30.0); Creatinine Clearance Estimated 336 mL/min (50-200); Estimated Glomerular Filt Rate 194 ml/min (>60); GFR (African American) 235 ML/MIN (>60); Globulin 2.9 g/dL (1.3-3.2); Glucose 87 mg/dl (74-100); Total Protein,Serum 6.3 g/dl (6.3-8.2)
[2025-03-23] MEDS: OXYTOCIN/RINGERS LACTATE 30 UNITS/500 ML BAG IV (06:52)
[2025-03-23 07:43] LABS: Basophils % 0.2 % (0.1-2.0); Eosinophils # 0.1 Kmm3 (0.0-0.4); Eosinophils % 1.2 % (0.1-12.0); Hematocrit 35.9 % (37.0-47.0); Hemoglobin 11.3 g/dL (12.2-16.2); Immature Granulocytes # 0.07 10^3uL; Immature Granulocytes % 0.8 %; Lymphocytes # 1.2 K/mm3 (0.7-4.5); Mean Corpuscular HGB Conc 31.5 g/dL (31.8-35.4); Mean Corpuscular Hemoglobin 24.3 pg (27.0-31.2); Mean Corpuscular Volume 77.2 fl (81-99); Mean Platelet Volume 10.4 fl (7.4-10.4); Monocytes # 0.8 K/mm3 (0.1-1.0); Monocytes % 8.4 % (1.7-9.3); Neutrophils # 7.1 K/mm3 (1.8-7.8); Neutrophils % 76.4 % (37.0-80.0); Nucleated Red Blood Cells # 0 10^3/uL; Nucleated Red Blood Cells % 0 %; Platelet Count 268 K/mm3 (142-424); Red Blood Count 4.65 M/mm3 (4.20-5.40); Red Cell Distribution Width-SD 54.9 fL; White Blood Count 9.2 K/mm3 (4.8-10.8)
[2025-03-23 09:34] LABS: Microscopic, Urine URINE MICROSCOPIC (MICROSCOPIC)
[2025-03-23 09:38] LABS: Appearance,Urine CLOUDY (Clear); Blood, Urine 3+ (Negative); Color,Urine YELLOW (Yellow); Glucose,Urine (UA) Negative (Negative); Ketones,Urine 1+ (Negative); Leukocyte Esterase,Urine TRACE (Negative); Nitrate,Urine Negative (Negative); Protein,Urine 1+ (Negative); Specific Gravity, Urine >= 1.030 (1.005-1.030)
--- NOTE | 2025-03-23 09:45 | EXP.HP ---
History of Present Illness *Admission Date: 03/23/25 *Reason for visit:: Induction *History of present illness: Rosibel Tovar is a 24-year-old at 39 weeks and 0 days gestation who presented to labor and delivery for medically indicated induction of labor. Her is complicated by hypertension. Her blood pressure has been fairly well-controlled throughout she has some elevated blood pressures when she transferred care around 25 weeks gestation and then some additional elevated blood pressures around 37 6 weeks gestation. She also had a few elevated blood pressures with diastolics in the 90s on arrival. Decision was made to proceed with induction. On presentation patient endorsed good movement and denies any leakage of fluid or vaginal bleeding. -OB records reviewed from transfer of care document: Patient has an ALAN of 03/30/2025 based on LMP consistent with 6-week ultrasound. LMP of 06/23/2024. -NIPT was normal chromosomes consistent with a male fetus -Pap smear from 08/10/2024: NILM, satisfactory. Gonorrhea chlamydia and trichomonas negative. -New OB labs from 08/09/2024: A+/ antibody neg. HIV nonreactive, hepatitis B surface antigen negative, hepatitis C antibody nonreactive, RPR nonreactive, rubella immune, a positive. Hemoglobin: 12.9. UDS negative. Urine culture mixed husam 1 hour GTT: 140 3-hour GTT: 71/142/125/27 GBS negative PFSH PFSH Disclaimer: The information contained in this section may have been updated after the patient was seen, as this information can be updated by other users. Medical History No significant past medical history Surgical History History of cholecystectomy Family History Other No significant family history Social History (Updated 03/23/25 @ 05:58 by Ting Bauman) Smoking Status: Former smoker alcohol intake: never substance use type: denies use current occupational status: unemployed Travel in the last 8 weeks?: None adopted: No caregiver/support person: Yes foster care: No household members: family housing: house marital status: caffeine: Yes Have you lived/traveled outside US in past 30 days?: No Contact w/someone who lives/traveled outside US past 30 days?: No Exposure to someone with infectious disease in past 14 days?: No Do you have a fever (greater than 100.4 F or 38 C)?: No Have you tested positive for COVID-19?: No Exposed to someone with COVID-19 in past 14 days?: No Do you have a sore throat?: No Do you have a cough?: No Do you have any weakness?: No Do you have any diarrhea?: No Are you experiencing any unusual bleeding?: No Do you have any muscle aches/pain?: No Do you have any abdominal pain?: No Are you experiencing loss of taste or smell?: No Other Medical History Have you received the Flu Vaccine for this season: No Have you received the Pneumonia Vaccine: No Review of Systems Review of Systems Review of systems (narrative): Review of Systems Constitutional: Denies fever, chills, and sweats Eyes: Denies vision change/ pain Respiratory: Denies cough and shortness of breath Cardiovascular: Denies chest pain and lightheadedness Gastrointestinal: Admits to mild pain with contractions. Denies nausea, vomiting. Genitourinary: Denies dysuria and incontinence Musculoskeletal: Denies shoulder pain and back pain Neurological: Denies change in speech or headaches Meds Home Medications and Allergies Home Medications ?Medication ?Instructions ?Recorded ?Confirmed ?Type vits no.126-ferrous fum 1 tab PO DAILY 11/23/24 03/23/25 History 28 mg iron-folic acid 800 mcg tablet (Classic ) New Prescriptions to Start Prescriptions: Allergies Allergy/AdvReac Type Severity Reaction Status Date / Time No Known Allergies Allergy Verified 03/22/25 13:21 Exam Data for Last 24 hours Vital signs and Labs for Last 24 Hours: Temp Pulse Resp BP Pulse Ox O2 Del Method 98.2 F 120 H 18 133/78 96 Room Air 03/23/25 05:16 03/23/25 05:16 03/23/25 05:16 03/23/25 05:16 03/23/25 05:16 03/23/25 05:16 Laboratory Results - last 24 hr 03/23/25 05:32: WBC 9.2, RBC 4.65, Hgb 11.3 L, Hct 35.9 L, MCV 77.2 L, MCH 24.3 L, MCHC 31.5 L, RDW 20.0 H, Plt Count 268, MPV 10.4, Neut % (Auto) 76.4, Lymph % (Auto) 13.0, [place] % (Auto) 8.4, Eos % (Auto) 1.2, Baso % (Auto) 0.2, Neut # (Auto) 7.1, Lymph # (Auto) 1.2, [place] # (Auto) 0.8, Eos # (Auto) 0.1, Baso # (Auto) 0.0, Sodium 137, Potassium 3.6, Chloride 109 H, Carbon Dioxide 21 L, Anion Gap 10.6, BUN 9, Creatinine 0.40 L, Estimated Creat Clear 336 H, Estimated GFR 194, Est GFR ( Amer) 235, Glucose 87, Uric Acid 5.0, Calcium 8.7, Total Bilirubin 0.4, AST 24, ALT 18, Alkaline Phosphatase 170 H, Total Protein 6.3, Albumin 3.4 L, Globulin 2.9, Albumin/Globulin Ratio 1.2, Blood Type A Positive, Antibody Screen Negative I & O for Last 24 hours: Intake & Output 03/20/25 03/21/25 03/22/25 03/23/25 23:59 23:59 23:59 23:59 Weight 218 lb Narrative: General: patient is alert oriented in no acute distress and responds appropriately to questions. HEENT: NCAT, EOMI, moist mucous membranes, neck supple with full ROM Cardiovascular: RRR +S1/S2, no murmurs or rubs Pulmonary: Clear to auscultation bilaterally, nonlabored breathing, symmetric chest rise Abdominal: Gravid abdomen appropriate for gestation. No guarding, rebound, or tenderness noted. Extremities: trace edema, no tenderness or cyanosis noted Skin: Normal turgor, intact, warm. Negative for erythema, pallor, petechia, or lesions Neurologic: Negative for sensory or motor deficit Psychiatric: Normal affect, normal thought process, good judgment and insight, no depression or anxious mood appreciated. *Routine HEENT Exam Head: Present normocephalic and atraumatic Eye: Present EOMI, PERRL and normal accommodation; Absent conjunctival icterus, scleral injection, nystagmus or exophthalmos ENT: Present mucous membranes moist *Routine Respiratory Exam Respiratory: Present CTA bilaterally, normal respiratory effort, able to speak in complete sentences and symmetric chest movement; Absent accessory muscle use, decreased breath sounds, rales, respiratory distress, wheezes, distant breath sounds or diminished air movement *Routine Cardiovascular Exam Cardiovascular: Present RRR, Normal S1 and Normal S2; Absent murmur or gallop *Routine Abdominal Exam Abdominal: Present soft and normoactive bowel sounds; Absent tenderness, distended, rebound or guarding *Routine Rectal Exam Rectal:: deferred *Routine Genitalia Exam Genitalia:: normal female Assessment and Plan *Assessment and plan (1) Gestational hypertension: Status: Acute Category: Medical Code(s): O13.9 - Gestational [-induced] hypertension without significant proteinuria, unspecified trimester (2) LGA (large for gestational age) fetus: Status: Acute Category: Medical (3) Encounter for induction of labor: Status: Acute Category: Medical Code(s): Z34.90 - Encounter for supervision of normal , unspecified, unspecified trimester Plan - Monitor vitals - Admit to L&D for induction of labor - Plan for induction with Pitocin, per protocol - External FHR and TOCO monitor - Exam on admission: /-3/posterior - GBS neg/ Blood type: A+ - Hemoglobin: 11.3, Plt: 268 - Anticipate vaginal delivery of male infant #Hypertension - PIH labs ordered - Urine protein creatinine ratio ordered - Follow vitals closely - Proceed with induction
[2025-03-23 09:53] LABS: Bilirubin,Urine 2+ (Negative)
[2025-03-23 09:55] LABS: Bacteria,Urine Trace /lpf; Squamous Epithelial Cell,Urine Occasional #/hpf (0-5)
[2025-03-23 09:58] LABS: Creatinine,Urine Random 298 mg/dL (Not Estab.)
[2025-03-23 10:39] LABS: RPR W/RFX Titers Nonreactive (Nonreactive)
[2025-03-23] MEDS: LACTATED RINGERS 1000ML 1,000 ML 500 ML IV (10:40)
--- NOTE | 2025-03-23 11:13 | EXP.ANES.CKL ---
[facility] Disclaimer: The information contained in this section may have been updated after the patient was seen, as this information can be updated by other users. Medical History No significant past medical history Surgical History History of cholecystectomy Family History Other No significant family history Social History (Updated 03/23/25 @ 05:58 by Ting Bauman) Smoking Status: Former smoker alcohol intake: never substance use type: denies use current occupational status: unemployed Travel in the last 8 weeks?: None adopted: No caregiver/support person: Yes foster care: No household members: family housing: house marital status: caffeine: Yes Have you lived/traveled outside US in past 30 days?: No Contact w/someone who lives/traveled outside US past 30 days?: No Exposure to someone with infectious disease in past 14 days?: No Do you have a fever (greater than 100.4 F or 38 C)?: No Have you tested positive for COVID-19?: No Exposed to someone with COVID-19 in past 14 days?: No Do you have a sore throat?: No Do you have a cough?: No Do you have any weakness?: No Do you have any diarrhea?: No Are you experiencing any unusual bleeding?: No Do you have any muscle aches/pain?: No Do you have any abdominal pain?: No Are you experiencing loss of taste or smell?: No [facility] Anesthesia Checklist Patient Identification Patient Identification: Arm Band and Verbal (Name & ) Structural Data Admitted From: Inpatient Planned Operative Procedure/s: Labor epidural Consent for Planned Operative Procedure(s) Verified: Yes Verified Documents: Surgical Consent NPO Status Verified Time NPO: 00:00 Chart Verification Results Verified: CBC Additional verifications Patient : Yes Anesthesia Reactions: No Hx Blood Transfusions: No Blood Transfusion Reaction: No Airway Assessment Mallampati Score:: Class II C-Spine Mobility Assessed: No TMJ Mobility Assessed: No Dentition: Good Dentition Neurological Assessment Level of Consciousness: Awake, Alert and Appropriate Hx Seizures: No Numbness or tingling in extremities: No Anesthesia Plan Anesthesia Risk discussed: Yes Anesthesia Plan: Verified Anesthesia Type: Epidural
[2025-03-23] MEDS: METOCLOPRAMIDE HCL 10MG/2ML VIAL 10 MG IVP (11:57)
[2025-03-23] MEDS: OXYTOCIN/RINGERS LACTATE 30 UNITS/500 ML BAG 999 UNITS IV (13:31)
[2025-03-23] MEDS: OXYTOCIN/RINGERS LACTATE 30 UNITS/500 ML BAG 40 UNITS IV (13:35)
--- NOTE | 2025-03-23 16:37 | EXP.DN ---
Delivery Note Delivery Date:: 03/23/25 Delivery Time:: 13:27 Anesthesia Type: Epidural Was labor medically induced?: Yes Induction method: per pitocin protocol Gestational age (weeks): 39 delivered prior to 39 weeks?: No Justification for early elective delivery:: Gestational Hypertension Infant Gender: Male at 1 minute: 8 at 5 minutes: 9 Delivery Procedure:: Preoperative diagnosis: 1. at 39 completed this weeks gestation, vertex 2. Rh positive 3. GBS negative 4. LGA 5. Gestational Hypertension Postoperative diagnosis: 1. at 39 completed this weeks gestation, vertex 2. Rh positive 3. GBS negative 4. LGA 5. Gestational Hypertension EBL: 350mL Specimen: 1. Cord blood Findings: 1. Liveborn viable male infant: Nithin . Apgars 8/9 at 1 and 5 minutes respectively. Weight: 9lb 2oz, 4139g 2. 2nd degree midline perineal laceration Complications: None Procedure: Non operative vaginal delivery Rosibel Tvoar is a 24yo who presented for induction this morning secondary to gestational hypertension at 39 weeks and 0 days gestation. On presentation she endorsed good movement, denies significant contractions, vaginal bleeding, or leakage of fluid. Induction was attempted with AROM but was unsuccessful. She was started on low-dose Pitocin followed by a repeat attempt to AROM 2 hours later with success. Scant but clear fluid. Pitocin was increased and held at a rate of about 4 for the majority of the induction. She progressed to complete. Infant was noted to be in the JUNIE position with effective maternal pushing there was a at 1327. There was no nuchal cord. The anterior right shoulder delivered followed by the posterior shoulder without dystocia. The lower body delivered with ease. The was bulb suctioned and placed on the maternal abdomen greater than 2 minutes were appreciated for delayed cord clamping. Umbilical cord was doubly clamped and cut. Cord blood was collected and sent for routine testing. Pitocin was started. The placenta delivered with cord traction and suprapubic countertraction. The uterus was firm and bleeding was scant. Second-degree perineal laceration was noted and repaired with 2-0 Vicryl in the normal fashion. The patient was counseled regarding the events of the delivery and the repair. Upon my leaving infant and mother were bonding and doing well. Laceration:: vaginal Placental Delivery Description: Spontaneous
[2025-03-23] MEDS: BENZOCAINE-MENTHOL SPRAY 56GM CAN TP (18:50)
[2025-03-23] MEDS: WITCH HAZEL 40 PADS/BOX TP (18:50)
[2025-03-23] MEDS: PRENATAL MULTIVITAMIN W/IRON 1 EACH PO (18:50)
[2025-03-23 20:50] VITALS: BP 130/82; PULSE 91; RESP 16; TEMP 36.9; O2SAT 98
[2025-03-23] MEDS: IBUPROFEN 400 MG TABLET 800 MG PO (20:58)
[2025-03-24 01:35] VITALS: BP 117/72; PULSE 71
[2025-03-24 05:32] VITALS: BP 126/77; PULSE 75; RESP 17; TEMP 36.7; O2SAT 99
[2025-03-24 06:02] LABS: Basophils % 0.2 % (0.1-2.0); Eosinophils # 0.1 Kmm3 (0.0-0.4); Eosinophils % 1.3 % (0.1-12.0); Hematocrit 32.3 % (37.0-47.0); Hemoglobin 10.1 g/dL (12.2-16.2); Immature Granulocytes # 0.06 10^3uL; Immature Granulocytes % 0.6 %; Lymphocytes # 1.7 K/mm3 (0.7-4.5); Lymphocytes % 17.7 % (10-50); Mean Corpuscular HGB Conc 31.3 g/dL (31.8-35.4); Mean Corpuscular Hemoglobin 24.3 pg (27.0-31.2); Mean Corpuscular Volume 77.6 fl (81-99); Mean Platelet Volume 10.4 fl (7.4-10.4); Monocytes # 0.8 K/mm3 (0.1-1.0); Monocytes % 8.3 % (1.7-9.3); Neutrophils # 6.9 K/mm3 (1.8-7.8); Neutrophils % 71.9 % (37.0-80.0); Nucleated Red Blood Cells # 0 10^3/uL; Nucleated Red Blood Cells % 0 %; Platelet Count 235 K/mm3 (142-424); Red Blood Count 4.16 M/mm3 (4.20-5.40); Red Cell Distribution Width 20.1 % (11.5-17.5); Red Cell Distribution Width-SD 54.5 fL; White Blood Count 9.6 K/mm3 (4.8-10.8)
[2025-03-24 06:15] LABS: Albumin Level 2.7 g/dl (3.5-5.0); Chloride 109 mmol/L (98-107); Potassium 3.4 mmoL/L (3.5-5.1); Sodium 137 mmol/L (136-145)
[2025-03-24 06:18] LABS: Alanine Aminotransferase 21 U/L (12-78); Albumin/Globulin Ratio 1.1 (1.1-1.8); Alkaline Phosphatase 144 U/L (38-126); Anion Gap 7.4 mEq/L (5-15); Aspartate Amino Transferase 29 U/L (14-36); Bilirubin,Total 0.3 mg/dl (0.2-1.3); Blood Urea Nitrogen 8 mg/dl (7-17); Carbon Dioxide 24 mmol/L (22.0-30.0); Creatinine Clearance Estimated 336 mL/min (50-200); Estimated Glomerular Filt Rate 194 ml/min (>60); GFR (African American) 235 ML/MIN (>60); Globulin 2.4 g/dL (1.3-3.2); Total Protein,Serum 5.1 g/dl (6.3-8.2)
[2025-03-24 06:19] LABS: Calcium 8.6 mg/dl (8.4-10.2); Glucose 78 mg/dl (74-100)
--- NOTE | 2025-03-24 11:08 | P.DS_ITS ---
General Admission date:: 03/23/25 Discharge date: 03/24/25 HPI HPI HPI: Rosibel Tovar is a 24-year-old at 39 weeks and 0 days gestation who presented to labor and delivery for medically indicated induction of labor. Her is complicated by hypertension. Her blood pressure has been fairly well-controlled throughout she has some elevated blood pressures when she transferred care around 25 weeks gestation and then some additional elevated blood pressures around 37 6 weeks gestation. She also had a few elevated blood pressures with diastolics in the 90s on arrival. Decision was made to proceed with induction. On presentation patient endorsed good movement and denies any leakage of fluid or vaginal bleeding. -OB records reviewed from transfer of care document: Patient has an ALAN of 03/30/2025 based on LMP consistent with 6-week ultrasound. LMP of 06/23/2024. -NIPT was normal chromosomes consistent with a male fetus -Pap smear from 08/10/2024: NILM, satisfactory. Gonorrhea chlamydia and trichomonas negative. -New OB labs from 08/09/2024: A+/ antibody neg. HIV nonreactive, hepatitis B surface antigen negative, hepatitis C antibody nonreactive, RPR nonreactive, rubella immune, a positive. Hemoglobin: 12.9. UDS negative. Urine culture mixed husam 1 hour GTT: 140 3-hour GTT: 71/142/125/27 GBS negative Hospital Course Hospital Course Hospital Course: Rosibel Tovar is a 24-year-old G3, P3 day #1 from a normal spontaneous vaginal delivery. She is doing very well. This was complicated by mild hypertension which has been very well-controlled since delivery. All of her labs are appropriate. She delivered a live viable male on 03/23/2025 at 1327. weighed 9 pounds 2 ounces, 4139 g. Apgars were 8 and 9 at 1 and 5 minutes respectively. She had a second-degree midline laceration which was repaired without difficulty She has done well and has remained afebrile with her at her hospitalization. She is eating and drinking and ambulating. She is breast feeding. Her lochia is normal. She has A Rh+ blood, she is rubella immune and was group B streptococcus negative. She will be discharged home to follow-up with Dr. Cameron in 2 weeks time. She will continue with her vitamins. She will take ibuprofen as well. She was given the usual instructions with respect to limiting her activity, driving and sexual activity. She was given instructions with respect to wound care. Her condition on discharge is stable and improved. Exam Data for Last 24 hours Vital signs and Labs for Last 24 Hours: Temp Pulse Resp BP Pulse Ox O2 Del Method 98.0 F 75 17 126/77 99 Room Air 03/24/25 05:32 03/24/25 05:32 03/24/25 05:32 03/24/25 05:32 03/24/25 05:32 03/24/25 05:32 Laboratory Results - last 24 hr 03/24/25 05:38: WBC 9.6, RBC 4.16 L, Hgb 10.1 L, Hct 32.3 L, MCV 77.6 L, MCH 24.3 L, MCHC 31.3 L, RDW 20.1 H, Plt Count 235, MPV 10.4, Neut % (Auto) 71.9, Lymph % (Auto) 17.7, [place]orne % (Auto) 8.3, Eos % (Auto) 1.3, Baso % (Auto) 0.2, Neut # (Auto) 6.9, Lymph # (Auto) 1.7, [place] # (Auto) 0.8, Eos # (Auto) 0.1, Baso # (Auto) 0.0, Sodium 137, Potassium 3.4 L, Chloride 109 H, Carbon Dioxide 24, Anion Gap 7.4, BUN 8, Creatinine 0.40 L, Estimated Creat Clear 336 H, Estimated GFR 194, Est GFR ( Amer) 235, Glucose 78, Calcium 8.6, Total Bilirubin 0.3, AST 29, ALT 21, Alkaline Phosphatase 144 H, Total Protein 5.1 L, Albumin 2.7 L D, Globulin 2.4, Albumin/Globulin Ratio 1.1 I & O for Last 24 hours: Intake & Output 03/21/25 03/22/25 03/23/25 03/24/25 23:59 23:59 23:59 23:59 Weight 218 lb Narrative: General: patient is alert oriented in no acute distress and responds appropriately to questions. Appears to be in minimal pain. Sitting up in the bed and doing well HEENT: NCAT, EOMI, moist mucous membranes, neck supple with full ROM Cardiovascular: RRR +S1/S2, no murmurs or rubs Pulmonary: Clear to auscultation bilaterally, nonlabored breathing, symmetric chest rise Abdominal: Fundus at the umbilicus, firm, and tenderness appropriate for the period. Extremities: trace edema, no tenderness or cyanosis noted Skin: Normal turgor, intact, warm. Negative for erythema, pallor, petechia, or lesions Neurologic: Negative for sensory or motor deficit Psychiatric: Normal affect, normal thought process, good judgment and insight, no depression or anxious mood appreciated. Results Data Completed and Pending Labs on day of discharge: Labs from last 24 hours 03/24/25 05:38 WBC 9.6 RBC 4.16 L Hgb 10.1 L Hct 32.3 L MCV 77.6 L MCH 24.3 L MCHC 31.3 L RDW 20.1 H Plt Count 235 MPV 10.4 Neut % (Auto) 71.9 Lymph % (Auto) 17.7 Claiborne % (Auto) 8.3 Eos % (Auto) 1.3 Baso % (Auto) 0.2 Neut # (Auto) 6.9 Lymph # (Auto) 1.7 [place] # (Auto) 0.8 Eos # (Auto) 0.1 Baso # (Auto) 0.0 Sodium 137 Potassium 3.4 L Chloride 109 H Carbon Dioxide 24 Anion Gap 7.4 BUN 8 Creatinine 0.40 L Estimated Creat Clear 336 H Estimated GFR 194 Est GFR ( Amer) 235 Glucose 78 Calcium 8.6 Total Bilirubin 0.3 AST 29 ALT 21 Alkaline Phosphatase 144 H Total Protein 5.1 L Albumin 2.7 L D Globulin 2.4 Albumin/Globulin Ratio 1.1 DS: Diagnosis Discharge Diagnosis (1) Gestational hypertension: Status: Acute Code(s): O13.9 - Gestational [-induced] hypertension without significant proteinuria, unspecified trimester (2) LGA (large for gestational age) fetus: Status: Acute (3) Encounter for induction of labor: Status: Acute Code(s): Z34.90 - Encounter for supervision of normal , unspecified, unspecified trimester Meds Home Medications and Allergies Home Medications ?Medication ?Instructions ?Recorded ?Confirmed ?Type vits no.126-ferrous fum 1 tab PO DAILY 03/23/25 History 28 mg iron-folic acid 800 mcg tablet (Classic ) acetaminophen 500 mg tablet 500 mg PO Q6H PRN fever or pain 03/24/25 Rx #30 tabs ibuprofen 800 mg tablet 800 mg PO Q8H PRN pain #60 t abs 03/24/25 Rx sennosides 8.6 mg tablet (Senna 8.6 mg PO BIDP PRN Con stipation 03/24/25 Rx Lax) #60 tabs New Prescriptions to Start Prescriptions: acetaminophen Ysabel Cameron ibuprofen Ysabel Cameron sennosides [Senna Lax] Ysabel Cameron Allergies Allergy/AdvReac Type Severity Reaction Status Date / Time No Known Allergies Allergy Verified 03/22/25 13:21 Discharge Plan Disposition Patient Disposition: Home, Self-Care Discharge Order Discharge Orders: Discharge Order (Routine); Ordered 03/24/25 Ordered By: Ysabel Cameron Follow up Plan Follow up with: Ysabel Cameron DO [Staff Physician, [employer]] - 04/06/25 2:30 pm Prescriptions/Medication Reconciliation: New sennosides [Senna Lax] 8.6 mg Tablet 8.6 mg PO BIDP PRN (Reason: Constipation) Qty: 60 2RF ibuprofen 800 mg tablet 800 mg PO Q8H PRN (Reason: pain) Qty: 60 2RF acetaminophen 500 mg tablet 500 mg PO Q6H PRN (Reason: fever or pain) Qty: 30 3RF Continued Classic 28 mg iron- 800 mcg tablet 1 tab PO DAILY Problem Reconciliation Problems Reviewed?: Yes Patient Discharge Instructions ACTIVITY: Continue current activity DIET: regular diet Additional Instructions: Congratulations on the delivery of your sweet baby boy. It is my privilege to be your doctor and I am so thankful I could be a part of your special day. Discharge: -Take 800 mg Ibuprofen every 8 hours as needed for pain. You can also take 500- 1000 mg of Tylenol in between doses, every 6-8 hours. -Colace can be taken 1-2 times per day as you need to soften your stool. Make sure to drink at least 8 cups of water per day. -Iron supplements can make you constipated. You can take iron tablets every other day if constipation is too bad. -Nothing in the vagina for 6 weeks - no intercourse, douching, tampons. No tub baths or swimming pools. -Do not lift greater than 20pounds for 2 weeks, this is the equivalent of 2 gallons of milk. -Reasons to return to L&D or call On-Call doctor - fever (greater than 100.4) - heavy vaginal bleeding (soaking through 1 pad in less than 2 hours or passing clots that are egg sized) - vaginal discharge (malodorous and/or purulent) - severe headaches, leg tenderness/edema, or any other symptoms that warrant immediate medical attention. depression/blues - Normal to feel anxious/overwhelmed for first 2 weeks - Talk to your doctor if: anxiety lasts over 2 weeks, trouble bonding with baby, withdrawing from other family members, thoughts of harming yourself or others Blood pressure and preeclampsia instructions 1. Please take your blood pressure twice daily. 2. Please call if greater than 2 values are higher than: 150 systolic (the top number) or 90 diastolic (the bottom number). 3. Please go to the emergency room or labor and delivery triage if any value is higher than: 160 systolic (the top number) or 110 diastolic (the bottom number). 4. Please call if unrelenting headache (does not go away with rest or Tylenol or ibuprofen), changes in vision (spots, floaters, flashes of light), chest pain, shortness of breath, or right upper quadrant (liver) abdominal pain. Ysabel Cameron DO [facility] [phone] *Nothing in the Vagina for 6 weeks* *No strenuous activity* *No heavy lifting* *No tub baths until okay's by MD* Patient Instructions: Depression, Hemorrhage, DI for Labor and Delivery, Vaginal , DI for Pre-eclampsia, [facility] Post Discharge Instructions Print Language: Mongolian Providers Primary Care Provider: Desiree Lyon Admit Provider: Ysabel Cameron Attending Provider: Ysabel Cameron
== END 2025-03-24 16:00 | disposition home or self-care (01) | DRG 807 ==
PROVIDERS: Admitting Provider Obstetrics & Gynecology; PCP Family Medicine; Visit Provider Obstetrics & Gynecology
DX: O13.4 Gestational [pregnancy-induced] hypertension without significant proteinuria, complicating childbirth (principal); Z37.0 Single live birth; O36.63X0 Maternal care for excessive fetal growth, third trimester, not applicable or unspecified; Z3A.39 39 weeks gestation of pregnancy; O70.1 Second degree perineal laceration during delivery; O26.893 Other specified pregnancy related conditions, third trimester; R11.2 Nausea with vomiting, unspecified
CPT/HCPCS: 36415; 59025; 80053; 81001; 82570; 84156; 84550; 85025; 86592; 86850; 88307; 94761; J2003; J2765; J2795; J3010; J7120; J7121